=== PATIENT | male | born 1970 | race Caucasian/White ===

== ENCOUNTER 2018-06-08 18:10 | Emergency (ER) | payer BC, MEDICAID ==
[2018-06-08 18:33] VITALS: BP 129/72
--- NOTE | 2018-06-08 18:49 | UC ---
Head Injury HPI - HPI Summary HPI Summary: Stumbled and fell back down about 7 stairs. No LOC. Ongoing headache. No neck pain. - History Of Current Complaint Chief Complaint: UCHeadInjury Stated Complaint: S/P FALL-HEAD COMPLAINT Time Seen by Provider: 06/08/18 18:43 Hx Obtained From: Patient Onset/Duration: Sudden Onset - Fell down stairs < 1 hour ago Severity Currently: Moderate Pain Intensity: 7 Character: Dull, Throbbing Aggravating Factor(s): Other - touch Alleviating Factor(s): Nothing Associated Signs And Symptoms: Negative: LOC (Time In Secs./Mins/Hrs), LOC Duration Unknown, Confusion, Memory Loss, Seizure, Epistaxis, Dental Malocclusion, Neck Pain, Nausea, Vomiting - Allergies/Home Medications Allergies/Adverse Reactions: Allergies Allergy/AdvReac Type Severity Reaction Status Date / Time No Known Allergies Allergy Verified 06/08/18 18:34 PMH/Surg Hx/FS Hx/Imm Hx Endocrine History: Diabetes Cardiovascular History: Hypertension - Surgical History Surgical History: Yes Surgery Procedure, Year, and Place: Esophageal dilatation,colecystectomy,hernia repair,appendectomy,right foot surgery,septoplasty, widening of nostrils, tonsilectomy - Family History Known Family History: Positive: Hypertension, Diabetes - Social History Occupation: Student Lives: With Family Alcohol Use: None Substance Use Type: None Substance Use Comment - Amount & Last Used: vicodin Smoking Status (MU): Never Smoked Tobacco Have You Smoked in the Last Year: No Review of Systems Musculoskeletal: Arthralgia - Shoulder Neurological: Headache Is Patient Immunocompromised?: No All Other Systems Reviewed And Are Negative: Yes Physical Exam Triage Information Reviewed: Yes Appearance: Well-Appearing, Pain Distress - mild, Obese Vital Signs: Initial Vital Signs Temp 99.5 F 06/08/18 18:27 Pulse 88 06/08/18 18:27 Resp 24 06/08/18 18:27 BP 129/72 06/08/18 18:27 Pulse Ox 97 06/08/18 18:27 Vital Signs Reviewed: Yes Eyes: Positive: Conjunctiva Clear ENT: Positive: Pharynx normal, TMs normal - Not visable with obstructing cerumen Neck: Positive: Supple, Nontender, No Lymphadenopathy Respiratory: Positive: Lungs clear Cardiovascular Exam: Normal Musculoskeletal Exam: Normal Neurological Exam: Normal Psychological Exam: Normal Skin Exam: Normal - Additional Comments Tender over a small area occipital scalp without hematoma. Head Injury Course/Dx - Differential Dx/Diagnosis Differential Diagnosis/HQI/PQRI: Cerebral Contusion, Cervical Sprain, Concussion Without LOC, Contusion Provider Diagnoses: Contusion head. Discharge - Sign-Out/Discharge Documenting (check all that apply): Patient Departure - Discharge Plan Condition: Stable Disposition: HOME Patient Education Materials: Scalp Contusion in Adults (ED) Referrals: Major Jon DO [Primary Care Provider] - - Billing Disposition and Condition Condition: STABLE Disposition: Home
--- NOTE | 2018-06-08 19:32 | RAD ---
INDICATION: Fall. Neck injury COMPARISON: CT brain October 24, 2013 TECHNIQUE: Noncontrast axial source images were acquired from the skull base to the vertex. FINDINGS: Ventricles/sulci: The ventricles and cisterns are normal in size and configuration for age. There is a Dandy-Walker variant Brain parenchyma: There is no acute focal parenchymal finding, evidence of intracranial mass, or intracranial mass effect. 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 Extra-axial spaces: There are no abnormal extra axial fluid collections or evidence of extra-axial mass. Calvarium: There is no calvarial fracture or other calvarial abnormality. Scalp: There is no evidence of scalp or extracalvarial soft tissue abnormality. Paranasal sinuses/mastoid: The paranasal sinuses and mastoid air cells are clear. Other: None. IMPRESSION: NO ACUTE INTRACRANIAL FINDINGS.
--- NOTE | 2018-06-08 19:32 | RAD ---
INDICATION: Fall. Neck pain COMPARISON: None TECHNIQUE: Noncontrast axial source images was performed from the skull base to the thoracic inlet. Coronal and and sagittal reformatted images were generated. FINDINGS: Vertebrae: There is no fracture or acute focal bony lesion. There are degenerative changes consisting of minor spurring from C4 through C6 Alignment: The craniocervical junction appears normal. The cervical vertebrae are normally aligned. Central Canal: There are no significant CT abnormalities of the central canal or foramina. MR imaging is a more sensitive method to evaluate the canal and foramina. Intervertebral disc spaces: The disc spaces are maintained. Brain: The visualized brain appears unremarkable. Soft tissues: The visualized soft tissue elements of the neck are unremarkable. The prevertebral soft tissues appear normal. The lung apices are clear. IMPRESSION: NO ACUTE FRACTURE. MILD SPONDYLITIC CHANGE.
== END 2018-06-08 19:47 | disposition home or self-care (01) ==
LOC: UCCORT 18:10
DX: W10.9XXA Fall (on) (from) unspecified stairs and steps, initial encounter (principal); Y93.9 Activity, unspecified; S00.03XA Contusion of scalp, initial encounter; E11.9 Type 2 diabetes mellitus without complications; I10 Essential (primary) hypertension
CPT/HCPCS: 70450; 72125; 99213; G0463

== ENCOUNTER 2018-06-29 12:28 | Inpatient (IN) | payer BC, MEDICAID ==
[2018-06-29] MEDS ORDERED: Tetan/Diph/Pertus SYR(Tdap)* 0.5 ML SYR(BOOSTRIX) use SYR IM ONE (12:58)
[2018-06-29] MEDS ORDERED: Ondansetron INJ* 2 MG/ML VIAL IV ONE (13:20)
[2018-06-29] MEDS ORDERED: Morphine INJ* 2 MG/ML 1 ML SYRINGE (TWO MG - NEW SYRINGE VERSION) IV ONE (13:20)
[2018-06-29 13:55] LABS: ABS Basophils 0 10^3/ul (0-0.2); ABS Eosinophils 0.4 10^3/ul (0-0.6); ABS Lymphocytes 0.3 10^3/ul (1.0-4.8); ABS Monocytes 0.5 10^3/ul (0-0.8); ABS Neutrophils 5.5 10^3/ul (1.5-7.7); ABS Nucleated RBC 0 10^3/ul; Eosinophil % 5.4 % (0-6); Hematocrit 33 % (42-52); Hemoglobin 11.2 g/dl (14.0-18.0); Lymphocyte % 3.8 % (25-47); Mean Corpuscular HGB Conc 34 g/dl (31-36); Mean Corpuscular Hemoglobin 29 pg (27-31); Mean Corpuscular Volume 86 fL (80-94); Mean Platelet Volume 7.4 um3 (7.4-10.4); Nucleated Red Blood Cells % 0; Platelet Count 257 10^3/ul (150-450); Red Blood Count 3.81 10^6/ul (4.00-5.40); Red Cell Distribution Width 14 % (10.5-15); White Blood Count 6.7 10^3/ul (3.5-10.8)
[2018-06-29 14:03] LABS: INR 1.16 (0.77-1.02)
--- NOTE | 2018-06-29 14:03 | RAD ---
HISTORY: Puncture wound with delayed care COMPARISONS: August 30, 2016 VIEWS: 3, Frontal, lateral, and oblique views of the right foot FINDINGS: BONE DENSITY: Normal. BONES: There is no displaced fracture. There are calcaneal enthesophytes. There is no appreciable erosion or periosteal reaction. JOINTS: There is advanced osteoarthritis of the midfoot. ALIGNMENT: There is no dislocation. SOFT TISSUES: There is soft tissue swelling of the forefoot. OTHER FINDINGS: There is no radiopaque foreign body. IMPRESSION: 1. OSTEOARTHRITIS. 2. SOFT TISSUE SWELLING. 3. NO APPRECIABLE EROSION OR PERIOSTEAL REACTION. 4. NO RADIOPAQUE FOREIGN BODY. 5. PLAIN FILM FINDINGS OF OSTEOMYELITIS ARE RELATIVELY LATE FINDINGS. IF THERE IS PERSISTENT CLINICAL CONCERN FOR OSTEOMYELITIS, RECOMMEND CORRELATION WITH FOLLOWUP IMAGING, THREE-PHASE BONE SCANNING, WHITE BLOOD CELL SCAN, AND/OR MRI OF THE AFFECTED REGION.
[2018-06-29 14:13] LABS: EGFR Non-African American 62.5 (>60)
[2018-06-29] MEDS ORDERED: Cefepime 2 GM in Dextrose(*) 2 GM/50 ML BAG IV ONE (16:11)
[2018-06-29] MEDS ORDERED: Vancomycin(*) 2,000 MG in NS 0.9% 250 ML* 250 ML IVPB ONE (16:14)
[2018-06-29] MEDS ORDERED: Vancomycin(*) 2,000 MG in NS 0.9% 500 ML* 500 ML IVPB ONE ×2 (16:42→17:00)
[2018-06-29] MEDS ORDERED: Dextrose 50% Syringe 50 ML* 25 GM/50 ML SYRINGE IV PUSH PRN (16:56)
[2018-06-29] MEDS ORDERED: Vancomycin per Pharmacy* NOTE FOLLOW UP SCH (17:00)
--- NOTE | 2018-06-29 18:22 | HP ---
CC: Dr. Jon; Dr. Rivera; Dr. Mendoza * HISTORY AND PHYSICAL: DATE OF ADMISSION: 06/29/18 TIME OF EVALUATION: 04:15 p.m. PRIMARY CARE PROVIDER: Dr. Jon CONSULTING PHYSICIAN: Dr. Rivera INFECTIOUS DISEASE SPECIALIST: Dr. Mendoza CHIEF COMPLAINT: "My foot is red." HISTORY OF PRESENT ILLNESS: Mr. Hernandez is a 48-year-old male with a past medical history of morbid obesity with a BMI of 47, type 2 diabetes, hypertension, bipolar disorder, who presents to the emergency room with complaints of right foot redness. The patient states that 9 days ago, he stepped on a nail that went through his shoe and nicked his plantar region. He states that it was not really painful and he continued to walk in his shoes for a couple of more hours. When he removed the shoe, there was a little bit of blood on his sock. He washed his foot and soaked it in warm water and peroxide and initially he felt that everything was okay. Four days later, he noticed some redness on the superior aspect of his foot and this progressed and 3 days ago he went to his primary care provider where he received a shot of ceftriaxone and was discharged on Bactrim. The patient states that the redness on his foot continued to spread reaching near his ankle, but today he noticed that some of the erythema was in the plantar area too and that was new, reason why he came to the emergency room for further evaluation. He describes low-grade fevers at home with temperature of 100.6 and some chills. He denies chest pain, palpitations, shortness of breath, nausea, vomiting, diarrhea, or other complaints. He did not notice any drainage from his foot. PAST MEDICAL HISTORY: 1. Morbid obesity with a BMI of 47. 2. Type 2 diabetes. 3. Hypertension. 4. Bipolar disorder. 5. Gout. 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 MEDICATION LIST: 1. Allopurinol 300 mg p.o. t.i.d. 2. Lamotrigine 200 mg p.o. q.a.m. and 400 mg p.o. at bedtime. 3. Lisinopril/hydrochlorothiazide 20/12.5 mg 1 tablet p.o. at bedtime. 4. Lorazepam 1 mg p.o. t.i.d. as needed for anxiety. 5. Metformin 1000 mg p.o. b.i.d. 6. Modafinil 200 mg p.o. daily. 7. Omeprazole 80 mg p.o. at bedtime. 8. Trazodone 300 mg p.o. at bedtime. ALLERGIES: No known drug allergies. FAMILY HISTORY: The patient's grandfather had a history of heart disease. There are other diabetics in the family. SOCIAL HISTORY: No history of tobacco, alcohol, or drug use. Surrogate decision maker is his , Rhea Hernandez, phone number is [phone]. REVIEW OF SYSTEMS: A 14-point review of systems was performed and all the pertinent negative and positive findings are in the HPI. PHYSICAL EXAMINATION GENERAL: The patient is a morbidly obese male, lying in the ED stretcher, in no acute distress. VITAL SIGNS: Temperature 98.3, heart rate is 77, respiratory rate is 14, oxygen saturation 93% on room air, blood pressure is 111/67. CHEST: Breath sounds present bilaterally with no added sounds. CVS: Normal S1, S2. Regular rate and rhythm. ABDOMEN: Obese, soft, nontender, nondistended. Bowel sounds present. EXTREMITIES: No edema. The patient has erythema on the superior aspect of his foot extending from metatarsals all the way to his ankle. He has an old surgical scar from a Bermudez's neuroma between his third and fourth toes. In the plantar area, the puncture site is barely visible, but there is erythema surrounding it. There are good pulses bilaterally and good capillary refill. DIAGNOSTIC STUDIES/LAB DATA: The patient had a CBC that showed WBC of 6.7, hemoglobin of 11.2, hematocrit of 33 with platelets of 257 with 83% neutrophils. ESR is 102. INR is 1.1, APTT is 30. Chemistry showed sodium of 131, potassium of 4.5, chloride 98, bicarb 25, BUN of 17, creatinine of 1.2, glucose of 152, lactic acid of 1.2, calcium of 9.1. LFTs were elevated with a total bilirubin of 3.7, AST of 57, ALT of 67, alk phos of 174. CRP was 253. Foot x-ray showed osteoarthritis, soft tissue swelling. No appreciable erosion or periosteal reaction. No radiopaque foreign body. ASSESSMENT AND PLAN: Mr. Hernandez is a 48-year-old male with a past medical history of morbid obesity, type 2 diabetes, hypertension, bipolar disorder, who presents to the emergency room with right foot erythema after stepping on a nail. 1. Right diabetic foot infection. With the patient's history of stepping on a nail through his shoe, he will need coverage for Pseudomonas on top of gram- positives and anaerobes. He will be admitted to medical floor. He will be treated with vancomycin, cefepime, and metronidazole. An MRI of his foot is already ordered to investigate possibility of osteomyelitis. He will be seen in consultation by orthopedist (Dr. Rivera) and Infectious Disease (Dr. Mendoza) . X- ray did not reveal any foreign body and there is no drainage at this point. His ESR and CRP are certainly elevated and that could suggest acute osteomyelitis. 2. Transaminitis. Suspect it could be secondary to fatty liver, but the patient does have elevation of bilirubin. He is status post cholecystectomy. I am going to check hepatitis serology and liver ultrasound. 3. Acute kidney injury. The patient's last creatinine was more than a year ago and it was normal at 0.8. He is going to receive IV fluids and we are going to monitor his renal function. Of note is the fact that he is on lisinopril and hydrochlorothiazide as an outpatient. I am going to hold the hydrochlorothiazide for now and continue the lisinopril monitoring his renal function. 4. Type 2 diabetes. I am going to check a hemoglobin A1c. I am holding his metformin for now and he will be covered with a lispro sliding scale. 5. Hypertension is controlled. We will continue lisinopril. 6. Bipolar disorder. We will continue lamotrigine, lorazepam, modafinil, and trazodone. 7. DVT prophylaxis: The patient has a score of 2 on the DVT Prophylaxis Risk Assessment Guide and he will be started on subcutaneous heparin. 8. Code status is full. TIME SPENT: Approximately 50 minutes were spent with the patient's interview, medical records review, physical examination to complete the admission, more than half of this time was spent [id number] with the patient and coordination of care. [id number]/[facility] #: [id number] E.J. NOBLE HOSPITALCristino
[2018-06-29] MEDS: Morphine VIAL* 4 MG/ML VIAL (1 ml vial) IV PRN (19:02)
[2018-06-29] MEDS: NS 0.9% 1000 ML* 1,000 ML IV SCH (19:35)
[2018-06-29] MEDS: Acetaminophen TAB* 325 MG PO PRN (19:54)
[2018-06-29] MEDS ORDERED: Lisinopril TAB* 10 MG PO SCH (21:00)
[2018-06-29] MEDS: metroNIDAZOLE IV 500 MG/100ML* 500 MG/100 ML BAG IVPB SCH (22:18)
[2018-06-29] MEDS: Omeprazole CAP* 20 MG PO SCH (22:18)
[2018-06-29] MEDS: Gabapentin CAP(*) 300 MG PO SCH (22:19)
[2018-06-29] MEDS: lamoTRIgine TAB(*) 100 MG PO SCH (22:20)
[2018-06-29] MEDS: PTO:Desvenlafaxine (NF) 50 MG TAB PO SCH (22:21)
[2018-06-29] MEDS: traZODone TAB* 100 MG PO SCH (22:21)
[2018-06-29] MEDS: Heparin VIAL(*) 5000 UNITS/ML VIAL (FIVE THOUSAND) SUBCUT SCH (22:22)
[2018-06-29] MEDS: Insulin LISPRO* 1 UNITS UNIT SUBCUT SCH (22:29)
[2018-06-30] MEDS: Vancomycin(*) 1,000 MG in NS 0.9% 250 ML* 250 ML IVPB SCH ×4 (00:15→19:58)
[2018-06-30] MEDS: Morphine VIAL* 4 MG/ML VIAL (1 ml vial) IV PRN (00:41)
[2018-06-30] MEDS: metroNIDAZOLE IV 500 MG/100ML* 500 MG/100 ML BAG IVPB SCH ×4 (01:44→18:49)
[2018-06-30] MEDS ORDERED: NS 0.9% 1000 ML* 1,000 ML IV ONE (03:45)
[2018-06-30] MEDS: NS 0.9% 1000 ML* 1,000 ML IV SCH (05:14)
[2018-06-30] MEDS: Cefepime(*) 2 GM in NS 0.9% 50 ML* 50 ML IVPB SCH ×2 (05:23→17:23)
[2018-06-30] MEDS: Heparin VIAL(*) 5000 UNITS/ML VIAL (FIVE THOUSAND) SUBCUT SCH ×3 (05:51→22:47)
[2018-06-30 07:18] LABS: ABS Basophils 0 10^3/ul (0-0.2); ABS Eosinophils 0.3 10^3/ul (0-0.6); ABS Lymphocytes 0.2 10^3/ul (1.0-4.8); ABS Monocytes 0.4 10^3/ul (0-0.8); ABS Neutrophils 4.6 10^3/ul (1.5-7.7); ABS Nucleated RBC 0 10^3/ul; Eosinophil % 6.2 % (0-6); Hematocrit 31 % (42-52); Hemoglobin 10.3 g/dl (14.0-18.0); Lymphocyte % 4.2 % (25-47); Mean Corpuscular HGB Conc 34 g/dl (31-36); Mean Corpuscular Hemoglobin 29 pg (27-31); Mean Corpuscular Volume 87 fL (80-94); Mean Platelet Volume 7.6 um3 (7.4-10.4); Nucleated Red Blood Cells % 0; Platelet Count 218 10^3/ul (150-450); Red Blood Count 3.53 10^6/ul (4.00-5.40); Red Cell Distribution Width 14 % (10.5-15); White Blood Count 5.6 10^3/ul (3.5-10.8)
[2018-06-30 07:28] LABS: EGFR Non-African American 77.6 (>60)
[2018-06-30] MEDS: Acetaminophen TAB* 325 MG PO PRN ×2 (07:53→19:24)
[2018-06-30] MEDS: Modafinil TAB* 100 MG PO SCH (07:53)
[2018-06-30] MEDS: lamoTRIgine TAB(*) 100 MG PO SCH ×2 (07:54→22:43)
[2018-06-30] MEDS: Allopurinol TAB* 100 MG PO SCH (07:54)
[2018-06-30] MEDS: Lisinopril TAB* 10 MG PO SCH (07:54)
[2018-06-30] MEDS: Gabapentin CAP(*) 300 MG PO SCH ×3 (07:54→22:42)
[2018-06-30] MEDS: PROCHLORPERAZINE INJ 5 MG/ML 2 ML VIAL IV PRN (07:59)
[2018-06-30] MEDS: Insulin LISPRO* 1 UNITS UNIT SUBCUT SCH ×4 (08:01→22:45)
--- NOTE | 2018-06-30 08:51 | RAD ---
HISTORY: Transaminitis COMPARISONS: None TECHNIQUE: Multiple transverse and longitudinal ultrasound images were obtained of the right upper quadrant of the abdomen using April 10, 2015. FINDINGS: The study is limited by patient body habitus. LIVER: The liver is diffusely echogenic and coarse in echotexture, with decreased acoustic transmission. Liver measures 22 cm in long axis.. There is normal hepatopedal flow of the portal vein on Doppler imaging. BILIARY TREE: There is no intrahepatic or extrahepatic biliary dilatation. The common duct measures 0.6 cm. GALLBLADDER: The patient is status post cholecystectomy. PANCREAS: The pancreas is obscured by overlying bowel gas. RIGHT KIDNEY: The right kidney is normal in shape, size, contour, and echogenicity. There is no hydronephrosis or nephrolithiasis. The right kidney measures 15 x 6.7 x 7.4 cm. AORTA AND IVC: The aorta and IVC are unremarkable. FLUID: There are no pleural effusions. There is no free fluid within the hepatorenal recess. OTHER FINDINGS: None. IMPRESSION: HEPATOMEGALY WITH FATTY INFILTRATION OF THE LIVER
[2018-06-30] MEDS: LORazepam TAB(*) 1 MG PO PRN (09:53)
--- NOTE | 2018-06-30 12:26 | RAD ---
HISTORY: Foot infection, puncture wound COMPARISONS: Plain film dated June 29, 2018 TECHNIQUE: The following sequences were obtained of the right foot: Coronal T1-weighted images and STIR images, sagittal T1-weighted images and STIR images, axial T1-weighted images and STIR images. FINDINGS: Evaluation is limited with patient motion artifact. Evaluation is also limited by lack of intravenous contrast. BONES: There is no appreciable bone edema. JOINTS: There is a joint effusion of the first MTP joint and to lesser extent of the second, third, and fourth MTP joints. SOFT TISSUE/MUSCULATURE: There is a 3.1 x 1.4 x 1.3 cm high T2, low T1 signal lesion between the heads of the third and fourth metatarsals. There is no well-defined wall. This extends into the deep plantar soft tissue, with edema tracking along the plantar flexor tendons. IMPRESSION: 1. LIMITED STUDY. 2. THERE IS A 3.1 CM LESION BETWEEN THE HEADS OF THE THIRD AND FOURTH METATARSALS. THE APPEARANCE IS SUGGESTIVE OF PHLEGMON, THOUGH EARLY ABSCESS IS ALSO WITHIN THE DIFFERENTIAL. THIS EXTENDS TO INVOLVE THE DEEP SPACES OF THE PLANTAR ASPECT OF THE FOOT WITH EDEMA TRACKING ALONG THE PLANTAR FLEXOR TENDON SHEATH. 3. THERE IS NO APPRECIABLE BONE EDEMA TO SUGGEST OSTEOMYELITIS. 4. THERE ARE SMALL JOINT EFFUSIONS OF THE SECOND THROUGH FOURTH MTP JOINTS.
--- NOTE | 2018-06-30 12:48 | CONS ---
ORTHOPEDIC CONSULT NOTE: DATE OF CONSULT: 06/30/18 Thank you for this orthopedic consultation. CHIEF COMPLAINT: Right foot pain. HISTORY OF PRESENT ILLNESS: Mr. Hernandez is a 48-year-old morbidly obese diabetic male with right foot pain and erythema. Ten days ago, he stepped on a nail that went through his shoe and did puncture the plantar aspect of his foot. He washed it with warm water and peroxide. Approximately 1 week ago, he noticed some redness on the top of his foot over the next 3 days, this progressed and he was placed on ceftriaxone and Bactrim by his primary care physician. He presented to the emergency room on 06/29/18, yesterday, with 8/10 pain in the foot, erythema, warmth, and difficulty ambulating. He reports some low-grade fevers at home up to 100.6 and some chills. He denies chest pain, shortness of breath, nausea, vomiting, headache, or dizziness. He denies any drainage from the foot. PAST MEDICAL HISTORY: Morbid obesity, type 2 diabetes, hypertension, bipolar disorder, gout. PAST SURGICAL HISTORY: Cholecystectomy, appendectomy, right foot Bermudez's neuroma excision. HOME MEDICATIONS: 1. Allopurinol 300 mg p.o. t.i.d. 2. Lamotrigine 200 mg p.o. q.a.m., 400 mg p.o. q.p.m. 3. Lisinopril/hydrochlorothiazide 20/12.5 one tablet p.o. q.h.s. 4. Lorazepam 1 mg p.o. t.i.d. 5. Metformin 1000 mg p.o. b.i.d. 6. Modafinil 200 mg p.o. daily. 7. Omeprazole 80 mg p.o. daily. 8. Trazodone 300 mg p.o. daily. ALLERGIES: No known drug allergies. FAMILY HISTORY: Paternal heart disease, diabetes. SOCIAL HISTORY: The patient lives with his . 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 No tobacco, alcohol or recreational drug use. Normally ambulates independently, but has been using a cane because of the foot pain. REVIEW OF SYSTEMS: A 14 systems reviewed with the patient, positive for the right foot pain and swelling, right foot erythema, recent puncture wound to the right foot, fevers, and chills. Otherwise, review of systems was negative or not relevant. PHYSICAL EXAM: General: The patient is a morbidly obese male, in no apparent distress. He seems sedated, alert and oriented x3, when questioned, pleasant mood and appropriate affect. Accompanied by supportive . Vitals: Temperature 99.2, pulse of 82, blood pressure 135/65. Gait is not assessed. HEENT: Atraumatic, normocephalic. Pupils are equal and reactive to light. Chest: Unlabored breathing. Right lower extremity: The patient's skin has a small open abrasion along the lateral aspect of the third toe. He has swelling and tenderness to palpation with erythema along the dorsal forefoot in the interspace between the third and fourth toe. On the plantar aspect, he has the same swelling and erythema in this region of the forefoot. The erythema spreads proximally into the midfoot and the swelling does as well. Erythema and swelling do not extend proximally into the ankle. The patient reports he has sensation to light touch in all nerve distributions. He has 2+ palpable DP pulse. He can dorsiflex and plantar flex. Motion at the toes does cause him pain. RADIOGRAPHS: Plain films of the patient's foot are reviewed, which show no obvious fracture. There are some arthritic changes. No periosteal reaction or erosion. Soft tissue swelling is noted. No foreign body. LABORATORY DATA: Labs today show white blood cell 5.6, hematocrit 31, platelets 218. INR 1.16. Sodium 132, potassium 4.9, chloride 104, BUN and creatinine 14 and 1.02. Bilirubin 3.5, direct bilirubin 2.6, AST 47, ALT 62, alk phos 176. CRP was 253 on 06/29/18. ESR was 102. ASSESSMENT AND PLAN: Mr. Hernandez is a 48-year-old morbidly obese diabetic male, 10 days status post puncture wound with the nail to the plantar aspect of his foot. Over the last 10 days, he has developed swelling, erythema in the interspace between the third and fourth toe, which is traveling approximately from his forefoot to his midfoot. He was admitted yesterday on 06/29/18 with pain and difficulty weightbearing. He has been placed on vancomycin and metronidazole. X- ray shows no obvious osteomyelitis. An MRI has been ordered and will evaluate for soft tissue inflammation, osteomyelitis and fluid collection like an abscess. For now, he will be weightbearing as tolerated on the right lower extremity. I agree with the vancomycin and metronidazole. Infectious Disease has been consulted. Orthopedics will follow along. Thank you for this orthopedic consultation. [id number]/[facility] #: [id number] LISA
[2018-06-30] MEDS: Fluticasone NASAL SPRAY 50MCG* 16 gm SPRAY BTL BOTH NARES SCH (13:59)
[2018-06-30] MEDS ORDERED: Hydrochlorothiazide TAB* 25 MG PO SCH (21:00)
[2018-06-30] MEDS: traZODone TAB* 100 MG PO SCH (22:41)
[2018-06-30] MEDS: PTO:Desvenlafaxine (NF) 50 MG TAB PO SCH (22:44)
[2018-06-30] MEDS: Omeprazole CAP* 20 MG PO SCH (22:44)
[2018-06-30] MEDS: Nystatin TOP POWDER* 15 GM BTL TOPICAL SCH (22:48)
[2018-07-01] MEDS: Vancomycin(*) 1,000 MG in NS 0.9% 250 ML* 250 ML IVPB SCH ×4 (00:17→18:53)
[2018-07-01] MEDS: metroNIDAZOLE IV 500 MG/100ML* 500 MG/100 ML BAG IVPB SCH ×4 (01:52→22:06)
[2018-07-01] MEDS: Cefepime(*) 2 GM in NS 0.9% 50 ML* 50 ML IVPB SCH ×2 (04:05→18:53)
[2018-07-01 05:27] LABS: ABS Basophils 0 10^3/ul (0-0.2); ABS Eosinophils 0.3 10^3/ul (0-0.6); ABS Lymphocytes 0.4 10^3/ul (1.0-4.8); ABS Monocytes 0.3 10^3/ul (0-0.8); ABS Neutrophils 3.1 10^3/ul (1.5-7.7); ABS Nucleated RBC 0 10^3/ul; Hematocrit 32 % (42-52); Hemoglobin 10.6 g/dl (14.0-18.0); Lymphocyte % 10.6 % (25-47); Mean Corpuscular HGB Conc 33 g/dl (31-36); Mean Corpuscular Hemoglobin 29 pg (27-31); Mean Corpuscular Volume 87 fL (80-94); Mean Platelet Volume 7.4 um3 (7.4-10.4); Nucleated Red Blood Cells % 0; Platelet Count 226 10^3/ul (150-450); Red Blood Count 3.65 10^6/ul (4.00-5.40); Red Cell Distribution Width 15 % (10.5-15); White Blood Count 4.2 10^3/ul (3.5-10.8)
[2018-07-01] MEDS ORDERED: Vancomycin Trough Check NOTE FOLLOW UP ONE (05:30)
[2018-07-01 05:45] LABS: EGFR Non-African American 73.5 (>60)
[2018-07-01] MEDS: Heparin VIAL(*) 5000 UNITS/ML VIAL (FIVE THOUSAND) SUBCUT SCH ×2 (06:04→12:08)
[2018-07-01] MEDS: Insulin LISPRO* 1 UNITS UNIT SUBCUT SCH ×4 (07:34→20:30)
--- NOTE | 2018-07-01 08:00 | PN ---
Subjective Date of Service: 06/30/18 Interval History: Pt seen and examined. Meds and labs reviewed. CC: N/A ROS: Denied DAVIDSON/dizziness, F/C, N/V, CP, SOB, increased cough, sputum production , abd pain, diarrhea, constipation, dysuria, myalgias, arthralgias, throat pain , and new skin lesions. The rest of the 14 point ROS are unremarkable. PHYSICAL EXAM: GEN APPEARANCE: Awake, not in acute distress HEENT: NC/AT, PERRLA, moist oral mucosa, (-) throat erythema NECK: Soft, supple, (-) cervical LAD, (-)JVD HEART: S1S2 WNL, RRR, No MRG CHEST: CTA, BL, GAE, No W/R/R ABD: Soft, ND/NT, NABS 4x Q EXT: No C/C/Right foot with signs of cellulitis and development of blister SKIN: Warm to touch PSYCH: No active psychosis, hallucinations, depression, SI/HI Objective Active Medications: Acetaminophen (Tylenol Tab*) 650 mg PO Q6H PRN PRN Reason: pain/fever Last Admin: 06/30/18 19:24 Dose: 650 mg Allopurinol (Zyloprim Tab*) 300 mg PO DAILY [facility] Last Admin: 06/30/18 07:54 Dose: 300 mg Desvenlafaxine Succinate (Pristiq (Nf)) 50 mg PO BEDTIME [facility] Last Admin: 06/30/18 22:44 Dose: 50 mg Dextrose (D50w Syringe 50 Ml*) 12.5 gm IV PUSH .FOR FS < 60 - SS PRN PRN Reason: FS < 60 Fluticasone Propionate (Flonase Nasal [place] 50mcg*) 1 spray BOTH NARES DAILY [facility] Last Admin: 06/30/18 13:59 Dose: 1 spray Gabapentin (Neurontin Cap(*)) 300 mg PO TID [facility] Last Admin: 06/30/18 22:42 Dose: 300 mg Heparin Sodium (Porcine) (Heparin Vial(*)) 5,000 units SUBCUT Q8HR [facility] Last Admin: 07/01/18 06:04 Dose: 5,000 units Cefepime HCl 2 gm/ Sodium (Chloride) 50 mls @ 100 mls/hr IVPB Q12H [facility] Last Admin: 07/01/18 04:05 Dose: 100 mls/hr Metronidazole/Sodium Chloride (Flagyl 500 Mg Ivpb*) 500 mg in 100 mls @ 100 mls /hr IVPB Q8H [facility] Last Admin: 07/01/18 01:52 Dose: 100 mls/hr Vancomycin HCl 1,000 mg/ (Sodium Chloride) 250 mls @ 166.667 mls/hr IVPB Q6H [facility] Last Admin: 07/01/18 06:04 Dose: 166.667 mls/hr Insulin Human Lispro (Humalog*) 0 units SUBCUT ACHS [facility]; Protocol Last Admin: 07/01/18 07:34 Dose: Not Given Lamotrigine (Lamictal Tab(*)) 200 mg PO QAM [facility] Last Admin: 06/30/18 07:54 Dose: 200 mg Lamotrigine (Lamictal Tab(*)) 400 mg PO BEDTIME [facility] Last Admin: 06/30/18 22:43 Dose: 400 mg Lisinopril (Prinivil Tab*) 20 mg PO DAILY [facility] Last Admin: 06/30/18 07:54 Dose: 20 mg Lorazepam (Ativan Tab(*)) 1 mg PO TID PRN PRN Reason: ANXIETY Last Admin: 06/30/18 09:53 Dose: 1 mg Modafinil (Provigil Tab*) 200 mg PO DAILY [facility] Last Admin: 06/30/18 07:53 Dose: 200 mg Morphine Sulfate (Morphine Vial*) 4 mg IV Q4H PRN PRN Reason: SEVERE PAIN Last Admin: 06/30/18 00:41 Dose: 4 mg Nystatin (Nystatin Top Powder*) 1 applic TOPICAL BID [facility] Last Admin: 06/30/18 22:48 Dose: 1 applic Omeprazole (Prilosec Cap*) 80 mg PO BEDTIME [facility] Last Admin: 06/30/18 22:44 Dose: 80 mg Pharmacy Consult (Vancomycin Per Pharmacy*) 1 note FOLLOW UP .VANC PER PHARMACY [facility] Prochlorperazine Edisylate (Compazine Inj*) 5 mg IV Q6H PRN PRN Reason: NAUSEA/VOMITING Last Admin: 06/30/18 07:59 Dose: 5 mg Trazodone HCl (Desyrel Tab*) 300 mg PO BEDTIME [facility] Last Admin: 06/30/18 22:41 Dose: 300 mg Vital Signs - 8 hr 07/01/18 07/01/18 07/01/18 00:17 04:45 07:17 Temperature 97.2 F 98.2 F Pulse Rate 79 77 Respiratory 17 16 19 Rate Blood Pressure 134/54 131/64 (mmHg) O2 Sat by Pulse 97 95 Oximetry Oxygen Devices in Use Now: None, BiPAP Result Diagrams: 07/01/18 05:15 07/01/18 05:15 Microbiology and Other Data: Microbiology 06/29/18 13:38 Aerobic Blood Culture - Preliminary Blood Venous No Growth Day 1 Anaerobic Blood Culture - Preliminary No Growth Day 1 06/29/18 13:43 Aerobic Blood Culture - Preliminary Blood Venous No Growth Day 1 Anaerobic Blood Culture - Preliminary No Growth Day 1 06/29/18 20:00 Nasal Screen MRSA (PCR) - Final Nasal Mrsa Not Detected Assess/Plan/Problems-Billing Assessment: - Patient Problems (1) Diabetic foot Current Visit: Yes Status: Acute Code(s): E11.8 - TYPE 2 DIABETES MELLITUS WITH UNSPECIFIED COMPLICATIONS SNOMED Code(s): 537363392 Comment: -S/P pt stepped on nail -Blood culture (-) x 1 day -Continue Cefepime, Flagyl, and Vanco -Will await further ID input -MRI of right foot reveals 3.1 cm phlegmon, although early abscess is in the differential; no bone edema to suggests osteomyelitis---will defer with Ortho for subsequent plan for possible I&D?? (2) Transaminitis Current Visit: Yes Status: Acute Code(s): R74.0 - NONSPEC ELEV OF LEVELS OF TRANSAMNS & LACTIC ACID DEHYDRGNSE SNOMED Code(s): 660016428 Comment: -Likely due to fatty liver disease given obesity and DM as suggested by Liver U/ S -Viral hepatitis screen pending (3) ANGELINA (acute kidney injury) Current Visit: Yes Status: Acute Code(s): N17.9 - ACUTE KIDNEY FAILURE, UNSPECIFIED SNOMED Code(s): 45093601 Comment: -Resolved (4) Diabetes 1.5, managed as type 2 Current Visit: Yes Status: Acute Code(s): E10.9 - TYPE 1 DIABETES MELLITUS WITHOUT COMPLICATIONS SNOMED Code(s): 605582852 Comment: -Well-controlled -Continue ISS (5) Hypertension Current Visit: Yes Status: Acute Code(s): I10 - ESSENTIAL (PRIMARY) HYPERTENSION SNOMED Code(s): 42062533 Comment: -Well-controlled -Continue Lisinopril (6) DVT prophylaxis Current Visit: Yes Status: Acute Code(s): GPZ1290 - SNOMED Code(s): 796679342 Comment: -Continue Heparin Status and Disposition: -For PT eval
[2018-07-01] MEDS: PROCHLORPERAZINE INJ 5 MG/ML 2 ML VIAL IV PRN ×2 (08:16→18:58)
--- NOTE | 2018-07-01 10:37 | PN ---
Subjective Date of Service: 07/01/18 Interval History: Pt seen and examined. Meds and labs reviewed. CC: Nauseated. Associates CC with Metronidazole with metallic taste sensation ROS: Denied DAVIDSON/dizziness, F/C, Vomiting, CP, SOB, increased cough, sputum production, abd pain, diarrhea, constipation, dysuria, myalgias, arthralgias, throat pain, and new skin lesions. The rest of the 14 point ROS are unremarkable. PHYSICAL EXAM: GEN APPEARANCE: Awake, not in acute distress HEENT: NC/AT, PERRLA, moist oral mucosa, (-) throat erythema NECK: Soft, supple, (-) cervical LAD, (-)JVD HEART: S1S2 WNL, RRR, No MRG CHEST: CTA, BL, GAE, No W/R/R ABD: Soft, ND/NT, NABS 4x Q EXT: No C/C/Right foot with signs of cellulitis and development of blister SKIN: Warm to touch PSYCH: No active psychosis, hallucinations, depression, SI/HI Objective Active Medications: Acetaminophen (Tylenol Tab*) 650 mg PO Q6H PRN PRN Reason: pain/fever Last Admin: 06/30/18 19:24 Dose: 650 mg Allopurinol (Zyloprim Tab*) 300 mg PO DAILY [facility] Last Admin: 06/30/18 07:54 Dose: 300 mg Desvenlafaxine Succinate (Pristiq (Nf)) 50 mg PO BEDTIME [facility] Last Admin: 06/30/18 22:44 Dose: 50 mg Dextrose (D50w Syringe 50 Ml*) 12.5 gm IV PUSH .FOR FS < 60 - SS PRN PRN Reason: FS < 60 Fluticasone Propionate (Flonase Nasal [place] 50mcg*) 1 spray BOTH NARES DAILY [facility] Last Admin: 06/30/18 13:59 Dose: 1 spray Gabapentin (Neurontin Cap(*)) 300 mg PO TID [facility] Last Admin: 06/30/18 22:42 Dose: 300 mg Heparin Sodium (Porcine) (Heparin Vial(*)) 5,000 units SUBCUT Q8HR [facility] Last Admin: 07/01/18 06:04 Dose: 5,000 units Cefepime HCl 2 gm/ Sodium (Chloride) 50 mls @ 100 mls/hr IVPB Q12H [facility] Last Admin: 07/01/18 04:05 Dose: 100 mls/hr Metronidazole/Sodium Chloride (Flagyl 500 Mg Ivpb*) 500 mg in 100 mls @ 100 mls /hr IVPB Q8H [facility] Last Admin: 07/01/18 08:11 Dose: 100 mls/hr Vancomycin HCl 1,000 mg/ (Sodium Chloride) 250 mls @ 166.667 mls/hr IVPB Q6H [facility] Last Admin: 07/01/18 06:04 Dose: 166.667 mls/hr Insulin Human Lispro (Humalog*) 0 units SUBCUT ACHS [facility]; Protocol Last Admin: 07/01/18 07:34 Dose: Not Given Lamotrigine (Lamictal Tab(*)) 200 mg PO QAM [facility] Last Admin: 06/30/18 07:54 Dose: 200 mg Lamotrigine (Lamictal Tab(*)) 400 mg PO BEDTIME [facility] Last Admin: 06/30/18 22:43 Dose: 400 mg Lisinopril (Prinivil Tab*) 20 mg PO DAILY [facility] Last Admin: 06/30/18 07:54 Dose: 20 mg Lorazepam (Ativan Tab(*)) 1 mg PO TID PRN PRN Reason: ANXIETY Last Admin: 06/30/18 09:53 Dose: 1 mg Modafinil (Provigil Tab*) 200 mg PO DAILY [facility] Last Admin: 06/30/18 07:53 Dose: 200 mg Morphine Sulfate (Morphine Vial*) 4 mg IV Q4H PRN PRN Reason: SEVERE PAIN Last Admin: 06/30/18 00:41 Dose: 4 mg Nystatin (Nystatin Top Powder*) 1 applic TOPICAL BID [facility] Last Admin: 06/30/18 22:48 Dose: 1 applic Omeprazole (Prilosec Cap*) 80 mg PO BEDTIME [facility] Last Admin: 06/30/18 22:44 Dose: 80 mg Pharmacy Consult (Vancomycin Per Pharmacy*) 1 note FOLLOW UP .VANC PER PHARMACY [facility] Prochlorperazine Edisylate (Compazine Inj*) 5 mg IV Q6H PRN PRN Reason: NAUSEA/VOMITING Last Admin: 07/01/18 08:16 Dose: 5 mg Trazodone HCl (Desyrel Tab*) 300 mg PO BEDTIME [facility] Last Admin: 06/30/18 22:41 Dose: 300 mg Vital Signs - 8 hr 08/20/18 08/20/18 08/20/18 04:45 07:17 08:00 Temperature 97.2 F 98.2 F Pulse Rate 79 77 Respiratory 16 19 20 Rate Blood Pressure 134/54 131/64 (mmHg) O2 Sat by Pulse 97 95 Oximetry Oxygen Devices in Use Now: None, BiPAP Result Diagrams: 07/01/18 05:15 07/01/18 05:15 Microbiology and Other Data: Microbiology 06/29/18 13:38 Aerobic Blood Culture - Preliminary Blood Venous No Growth Day 1 Anaerobic Blood Culture - Preliminary No Growth Day 1 06/29/18 13:43 Aerobic Blood Culture - Preliminary Blood Venous No Growth Day 1 Anaerobic Blood Culture - Preliminary No Growth Day 1 06/29/18 20:00 Nasal Screen MRSA (PCR) - Final Nasal Mrsa Not Detected Assess/Plan/Problems-Billing Assessment: - Patient Problems (1) Diabetic foot Current Visit: Yes Status: Acute Code(s): E11.8 - TYPE 2 DIABETES MELLITUS WITH UNSPECIFIED COMPLICATIONS SNOMED Code(s): 054030501 Comment: -S/P pt stepped on nail -Blood culture (-) x 1 day -Continue Cefepime, Flagyl, and Vanco -Will await further ID input -MRI of right foot reveals 3.1 cm phlegmon, although early abscess is in the differential; no bone edema to suggests osteomyelitis---touched base with RN who mentioned that orthopedics is planning for an I&D/wash-out later this PM and currently NPO (2) Nausea Current Visit: Yes Status: Acute Code(s): R11.0 - NAUSEA SNOMED Code(s): 649528711 Comment: -Likely due to Flagyl as described above -Provided PRN IV Zofran (3) Transaminitis Current Visit: Yes Status: Acute Code(s): R74.0 - NONSPEC ELEV OF LEVELS OF TRANSAMNS & LACTIC ACID DEHYDRGNSE SNOMED Code(s): 378505298 Comment: -Likely due to fatty liver disease given obesity and DM as suggested by Liver U/ S -Viral hepatitis screen pending (4) ANGELINA (acute kidney injury) Current Visit: Yes Status: Acute Code(s): N17.9 - ACUTE KIDNEY FAILURE, UNSPECIFIED SNOMED Code(s): 58584316 Comment: -Resolved (5) Diabetes 1.5, managed as type 2 Current Visit: Yes Status: Acute Code(s): E10.9 - TYPE 1 DIABETES MELLITUS WITHOUT COMPLICATIONS SNOMED Code(s): 611112681 Comment: -Well-controlled -Continue ISS (6) Hypertension Current Visit: Yes Status: Acute Code(s): I10 - ESSENTIAL (PRIMARY) HYPERTENSION SNOMED Code(s): 33612572 Comment: -Well-controlled -Continue Lisinopril (7) DVT prophylaxis Current Visit: Yes Status: Acute Code(s): DRB4708 - SNOMED Code(s): 523885709 Comment: -Continue Heparin Status and Disposition: -Appreciate PT eval -Continue with RW
[2018-07-01] MEDS: Gabapentin CAP(*) 300 MG PO SCH ×3 (11:30→20:33)
[2018-07-01] MEDS: Fluticasone NASAL SPRAY 50MCG* 16 gm SPRAY BTL BOTH NARES SCH (11:32)
[2018-07-01] MEDS: Nystatin TOP POWDER* 15 GM BTL TOPICAL SCH ×2 (11:33→22:07)
[2018-07-01] MEDS: Modafinil TAB* 100 MG PO SCH (11:33)
[2018-07-01] MEDS ORDERED: Famotidine IV* 10 MG/ML 2 ML (20 mg) IV ONE (14:29)
[2018-07-01] MEDS ORDERED: Ondansetron TAB* 4 MG PO ONE (14:29)
[2018-07-01] MEDS ORDERED: DiMENhydriNATE IV* 50 MG/ML VIAL IV PUSH ONE (14:29)
[2018-07-01] MEDS ORDERED: Buffered Lidocaine 0.9% SYRIN* 5 ML/SYR SYRINGE INTRADERM ONE (14:29)
[2018-07-01] MEDS ORDERED: Midazolam* 1 MG/ML 5 ML VIAL (5 MG) ONE (16:31)
[2018-07-01] MEDS ORDERED: KETAMINE HCL* 50 MG/ML 10 ML VIAL ONE (16:31)
[2018-07-01] MEDS ORDERED: fentaNYL* 50 MCG/ML 2 ML VIAL (100 MCG VIAL) ONE (16:31)
[2018-07-01] MEDS ORDERED: Lidocaine 2% PF* 10 ML AMP ONE (16:47)
[2018-07-01] MEDS ORDERED: Morphine INJ* 2 MG/ML 1 ML SYRINGE (TWO MG - NEW SYRINGE VERSION) IV PRN (16:57)
[2018-07-01] MEDS ORDERED: PROCHLORPERAZINE INJ 5 MG/ML 2 ML VIAL IV PRN (16:57)
[2018-07-01] MEDS ORDERED: oxyCODONE/Acetamin 5/325 MG* TAB PO PRN (16:57)
[2018-07-01] MEDS ORDERED: Naloxone* 0.4 MG/ML 1 ML VIAL IV PRN (16:57)
[2018-07-01] MEDS ORDERED: fentaNYL* 50 MCG/ML 2 ML VIAL (100 MCG VIAL) IV PRN (16:57)
[2018-07-01] MEDS ORDERED: Propofol* 10 MG/ML 20 ML BTL IV PUSH ONE (17:37)
[2018-07-01] MEDS: Morphine VIAL* 4 MG/ML VIAL (1 ml vial) IV PRN (18:43)
[2018-07-01] MEDS: Acetaminophen TAB* 325 MG PO PRN (18:57)
[2018-07-01] MEDS: Omeprazole CAP* 20 MG PO SCH (20:32)
[2018-07-01] MEDS: traZODone TAB* 100 MG PO SCH (20:32)
[2018-07-01] MEDS: lamoTRIgine TAB(*) 100 MG PO SCH ×2 (20:32→22:36)
[2018-07-01] MEDS: Allopurinol TAB* 100 MG PO SCH (20:41)
[2018-07-01] MEDS: Lisinopril TAB* 10 MG PO SCH (20:43)
[2018-07-01] MEDS: PTO:Desvenlafaxine (NF) 50 MG TAB PO SCH (20:57)
[2018-07-02] MEDS: Vancomycin(*) 1,000 MG in NS 0.9% 250 ML* 250 ML IVPB SCH ×5 (00:03→23:41)
[2018-07-02] MEDS: metroNIDAZOLE IV 500 MG/100ML* 500 MG/100 ML BAG IVPB SCH ×3 (04:26→20:29)
[2018-07-02] MEDS: Cefepime(*) 2 GM in NS 0.9% 50 ML* 50 ML IVPB SCH (05:31)
[2018-07-02] MEDS: LORazepam TAB(*) 1 MG PO PRN ×2 (06:36→22:08)
[2018-07-02 06:39] LABS: Hematocrit 30 % (42-52); Hemoglobin 10.4 g/dl (14.0-18.0); Mean Corpuscular HGB Conc 35 g/dl (31-36); Mean Corpuscular Hemoglobin 30 pg (27-31); Mean Corpuscular Volume 85 fL (80-94); Mean Platelet Volume 7.6 um3 (7.4-10.4); Platelet Count 240 10^3/ul (150-450); Red Blood Count 3.52 10^6/ul (4.00-5.40); Red Cell Distribution Width 15 % (10.5-15); White Blood Count 4.8 10^3/ul (3.5-10.8)
[2018-07-02 06:57] LABS: EGFR Non-African American 86.4 (>60)
[2018-07-02] MEDS: Nystatin TOP POWDER* 15 GM BTL TOPICAL SCH ×2 (08:26→22:07)
[2018-07-02] MEDS: Fluticasone NASAL SPRAY 50MCG* 16 gm SPRAY BTL BOTH NARES SCH (08:38)
[2018-07-02] MEDS: Lisinopril TAB* 10 MG PO SCH (08:39)
[2018-07-02] MEDS: Insulin LISPRO* 1 UNITS UNIT SUBCUT SCH ×4 (08:39→20:48)
[2018-07-02] MEDS: Gabapentin CAP(*) 300 MG PO SCH ×3 (08:39→20:49)
[2018-07-02] MEDS: Modafinil TAB* 100 MG PO SCH (08:39)
[2018-07-02] MEDS: Allopurinol TAB* 100 MG PO SCH (08:39)
[2018-07-02] MEDS: lamoTRIgine TAB(*) 100 MG PO SCH ×2 (08:40→20:49)
--- NOTE | 2018-07-02 09:02 | OP ---
DATE OF OPERATION: 07/01/18 - ROOM #408 DATE OF : 68 ATTENDING SURGEON: Williams Bradford MD REFINERY TECHNICIAN: Dianna Estevez PA-C PRE-OP DIAGNOSES: Abscess right foot, previous puncture wound. POST-OP DIAGNOSES: Abscess right foot, previous puncture wound. OPERATIVE PROCEDURE: Debridement, open packing right foot. DESCRIPTION OF PROCEDURE: The patient was taken to the operating room where ankle Esmarch was applied as well as some local anesthetic. We opened up through a 5-cm incision of the dorsal abscess, which was located basically between the third and fourth metatarsal head, dorsal right forefoot. Immediately on incising through the area of tenting skin we encountered pink purulent pus probably 20 to 25 cc noted. This was irrigated thoroughly with pulsatile lavage. We used a curette and rongeur for the soft tissues part of the dorsal skin, which was damaged. We debrided all the way down between the metatarsal head with the pulsatile lavage and the aggressive curetting and rongeur. We then packed the wound open with some Betadine gauze wrapping a compression dressing. Cultures were sent. [id number]/[facility] #: [id number] LISA
--- NOTE | 2018-07-02 13:53 | PN ---
Subjective Date of Service: 07/02/18 Interval History: Pt seen and examined. Meds and labs reviewed. CC: Tolerable right foot pain post I&D ROS: Denied DAVIDSON/dizziness, F/C, N/V, CP, SOB, increased cough, sputum production , abd pain, diarrhea, constipation, dysuria, myalgias, arthralgias, throat pain , and new skin lesions. The rest of the 14 point ROS are unremarkable. PHYSICAL EXAM: GEN APPEARANCE: Awake, not in acute distress HEENT: NC/AT, PERRLA, moist oral mucosa, (-) throat erythema NECK: Soft, supple, (-) cervical LAD, (-)JVD HEART: S1S2 WNL, RRR, No MRG CHEST: CTA, BL, GAE, No W/R/R ABD: Soft, ND/NT, NABS 4x Q EXT: No C/C/Right foot dressing, cdi SKIN: Warm to touch PSYCH: No active psychosis, hallucinations, depression, SI/HI Objective Active Medications: Acetaminophen (Tylenol Tab*) 650 mg PO Q6H PRN PRN Reason: pain/fever Last Admin: 07/01/18 18:57 Dose: 650 mg Allopurinol (Zyloprim Tab*) 300 mg PO DAILY [facility] Last Admin: 07/02/18 08:39 Dose: 300 mg Desvenlafaxine Succinate (Pristiq (Nf)) 50 mg PO BEDTIME [facility] Last Admin: 07/01/18 20:57 Dose: 50 mg Dextrose (D50w Syringe 50 Ml*) 12.5 gm IV PUSH .FOR FS < 60 - SS PRN PRN Reason: FS < 60 Fluticasone Propionate (Flonase Nasal [place] 50mcg*) 1 spray BOTH NARES DAILY [facility] Last Admin: 07/02/18 08:38 Dose: 1 spray Gabapentin (Neurontin Cap(*)) 300 mg PO TID [facility] Last Admin: 07/02/18 08:39 Dose: 300 mg Heparin Sodium (Porcine) (Heparin Vial(*)) 5,000 units SUBCUT Q8H [facility] Vancomycin HCl 1,000 mg/ (Sodium Chloride) 250 mls @ 166.667 mls/hr IVPB Q6H [facility] Last Admin: 07/02/18 12:43 Dose: 166.667 mls/hr Lactated Ringer's (Lactated Ringers 1000 Ml Bag*) 1,000 mls @ 125 mls/hr IV PER RATE [facility] Last Admin: 07/01/18 15:19 Dose: 125 mls/hr Metronidazole/Sodium Chloride (Flagyl 500 Mg Ivpb*) 500 mg in 100 mls @ 100 mls /hr IVPB 0400,1200,2000 [facility] Last Admin: 07/02/18 11:22 Dose: 100 mls/hr Cefepime HCl (Maxipime 2 Gm In Dextrose Duplex (*)) 2 gm in 50 mls @ 100 mls/ hr IV 0500,1700 [facility] Insulin Human Lispro (Humalog*) 0 units SUBCUT ACHS [facility]; Protocol Last Admin: 07/02/18 12:43 Dose: 3 units Lamotrigine (Lamictal Tab(*)) 200 mg PO QAM [facility] Last Admin: 07/02/18 08:40 Dose: 200 mg Lamotrigine (Lamictal Tab(*)) 400 mg PO BEDTIME [facility] Last Admin: 07/01/18 22:36 Dose: 200 mg Lisinopril (Prinivil Tab*) 20 mg PO DAILY [facility] Last Admin: 07/02/18 08:39 Dose: 20 mg Lorazepam (Ativan Tab(*)) 1 mg PO TID PRN PRN Reason: ANXIETY Last Admin: 07/02/18 06:36 Dose: 1 mg Modafinil (Provigil Tab*) 200 mg PO DAILY [facility] Last Admin: 07/02/18 08:39 Dose: 200 mg Morphine Sulfate (Morphine Vial*) 4 mg IV Q4H PRN PRN Reason: SEVERE PAIN Last Admin: 07/01/18 18:43 Dose: 4 mg Nystatin (Nystatin Top Powder*) 1 applic TOPICAL BID [facility] Last Admin: 07/02/18 08:26 Dose: Not Given Omeprazole (Prilosec Cap*) 80 mg PO BEDTIME [facility] Last Admin: 07/01/18 20:32 Dose: 80 mg Oxycodone HCl (Roxycodone Tab*) 5 mg PO Q4H PRN PRN Reason: PAIN - MODERATE Pharmacy Consult (Vancomycin Per Pharmacy*) 1 note FOLLOW UP .VANC PER PHARMACY [facility] Pharmacy Profile Note (Vancomycin Trough Check) 1 note FOLLOW UP 0600 ONE Stop: 07/03/18 06:01 Prochlorperazine Edisylate (Compazine Inj*) 5 mg IV Q6H PRN PRN Reason: NAUSEA/VOMITING Last Admin: 07/01/18 18:58 Dose: 5 mg Trazodone HCl (Desyrel Tab*) 300 mg PO BEDTIME [facility] Last Admin: 07/01/18 20:32 Dose: 300 mg Vital Signs - 8 hr 07/02/18 07/02/18 07/02/18 06:36 07:52 08:00 Temperature 97.9 F Pulse Rate 77 Respiratory 18 18 18 Rate Blood Pressure 132/64 (mmHg) O2 Sat by Pulse 97 97 Oximetry 07/02/18 07/02/18 07/02/18 08:39 09:24 11:15 Temperature Pulse Rate Respiratory 18 16 16 Rate Blood Pressure (mmHg) O2 Sat by Pulse Oximetry Oxygen Devices in Use Now: None Result Diagrams: 07/02/18 06:23 07/02/18 06:23 Microbiology and Other Data: Microbiology 06/29/18 13:38 Aerobic Blood Culture - Preliminary Blood Venous No Growth Day 1 Anaerobic Blood Culture - Preliminary No Growth Day 1 06/29/18 13:43 Aerobic Blood Culture - Preliminary Blood Venous No Growth Day 1 Anaerobic Blood Culture - Preliminary No Growth Day 1 06/29/18 20:00 Nasal Screen MRSA (PCR) - Final Nasal Mrsa Not Detected Assess/Plan/Problems-Billing Assessment: - Patient Problems (1) Diabetic foot Current Visit: Yes Status: Acute Code(s): E11.8 - TYPE 2 DIABETES MELLITUS WITH UNSPECIFIED COMPLICATIONS SNOMED Code(s): 225296745 Comment: -S/P I&D yesterday--for possible re-visit on ??? Will defer with ortho -S/P pt stepped on nail -Blood culture---1 BC (+) Gram positive cocciwill continue to wait for culture incubation and monitor clinical course; pt appears to be improving clinically and could be contamination; will await for speciation; (-) MRSA-+-++ -Continue Cefepime, Flagyl, and Vanco -Will await further ID input -MRI of right foot reveals 3.1 cm phlegmon, although early abscess is in the differential; no bone edema to suggests osteomyelitis---touched base with RN who mentioned that orthopedics is planning for an I&D/wash-out later this PM and currently NPO (2) Nausea Current Visit: Yes Status: Acute Code(s): R11.0 - NAUSEA SNOMED Code(s): 688889822 Comment: -Likely due to Flagyl as described above -Provided PRN IV Zofran (3) Transaminitis Current Visit: Yes Status: Acute Code(s): R74.0 - NONSPEC ELEV OF LEVELS OF TRANSAMNS & LACTIC ACID DEHYDRGNSE SNOMED Code(s): 619832688 Comment: -Likely due to fatty liver disease given obesity and DM as suggested by Liver U/ S -Viral hepatitis screen pending (4) Diabetes 1.5, managed as type 2 Current Visit: Yes Status: Acute Code(s): E10.9 - TYPE 1 DIABETES MELLITUS WITHOUT COMPLICATIONS SNOMED Code(s): 207386206 Comment: -Well-controlled -Continue ISS (5) Hypertension Current Visit: Yes Status: Acute Code(s): I10 - ESSENTIAL (PRIMARY) HYPERTENSION SNOMED Code(s): 23654649 Comment: -Well-controlled -Continue Lisinopril (6) DVT prophylaxis Current Visit: Yes Status: Acute Code(s): EIK9672 - SNOMED Code(s): 566540158 Comment: -Continue Heparin Status and Disposition: -Appreciate PT eval -Continue with RW
[2018-07-02] MEDS ORDERED: Heparin VIAL(*) 5000 UNITS/ML VIAL (FIVE THOUSAND) SUBCUT SCH (14:00)
--- NOTE | 2018-07-02 14:36 | PN ---
Progress Note - Progress Note Date of Service: 07/02/18 SOAP: Subjective: [] Patient seen at bedside. He feels well but is unable to be NWB. He has no pain of his operative site. Denies fever or chills Objective: []General: Well appearing, NAD MSK: Right foot Dressing CDI. Sensation intact and capillary refill less than two seconds distal to dressing. Calves nontender and nonerythematous Assessment: [] Right foot s/p I&D Plan: []Heel WB RLE Agreeable to return to the OR for repeat I&D Vital Signs Temp 97.9 F 07/02/18 07:52 Pulse 77 07/02/18 07:52 Resp 16 07/02/18 11:15 BP 132/64 07/02/18 07:52 Pulse Ox 97 07/02/18 08:00 Intake & Output 07/01/18 07/02/18 07/02/18 18:59 06:59 18:59 Intake Total 750 550 Balance 750 550 Intake: IV Fluids 750 2 GM CEFEPIME 50 LR 700 IVPB 550 ABX - CEFEPIME 100 ABX - FLAGYL 200 ABX - VANCOMYCIN 250 Oral 0 0 Other: # Bowel Movements 1 0 Estimated Stool Amount Medium # Voids 3 1 Laboratory Last Values WBC 4.8 10^3/ul (3.5-10.8) 07/02/18 06:23 RBC 3.52 10^6/ul (4.00-5.40) L 07/02/18 06:23 Hgb 10.4 g/dl (14.0-18.0) L 07/02/18 06:23 Hct 30 % (42-52) L 07/02/18 06:23 MCV 85 fL (80-94) 07/02/18 06:23 MCH 30 pg (27-31) 07/02/18 06:23 MCHC 35 g/dl (31-36) 07/02/18 06:23 RDW 15 % (10.5-15) 07/02/18 06:23 Plt Count 240 10^3/ul (150-450) 07/02/18 06:23 MPV 7.6 um3 (7.4-10.4) 07/02/18 06:23 Neut % (Auto) 73.0 % (38-83) 07/01/18 05:15 Lymph % (Auto) 10.6 % (25-47) L 07/01/18 05:15 [place] % (Auto) 8.0 % (0-7) H 07/01/18 05:15 Eos % (Auto) 8.0 % (0-6) H 07/01/18 05:15 Baso % (Auto) 0.4 % (0-2) 07/01/18 05:15 Absolute Neuts (auto) 3.1 10^3/ul (1.5-7.7) 07/01/18 05:15 Absolute Lymphs (auto) 0.4 10^3/ul (1.0-4.8) L 07/01/18 05:15 Absolute Monos (auto) 0.3 10^3/ul (0-0.8) 07/01/18 05:15 Absolute Eos (auto) 0.3 10^3/ul (0-0.6) 07/01/18 05:15 Absolute Basos (auto) 0 10^3/ul (0-0.2) 07/01/18 05:15 Absolute Nucleated RBC 0 10^3/ul 07/01/18 05:15 Nucleated RBC % 0 07/01/18 05:15 ESR 102 mm/Hr (0-14) H 06/29/18 13:38 INR (Anticoag Therapy) 1.16 (0.77-1.02) H 06/29/18 13:38 APTT 30.3 seconds (26.0-36.3) 06/29/18 13:38 Sodium 134 mmol/L (135-145) L 07/02/18 06:23 Potassium 4.3 mmol/L (3.5-5.0) 07/02/18 06:23 Chloride 107 mmol/L (101-111) 07/02/18 06:23 Carbon Dioxide 20 mmol/L (22-32) L 07/02/18 06:23 Anion Gap 7 mmol/L (2-11) 07/02/18 06:23 BUN 14 mg/dL (6-24) 07/02/18 06:23 Creatinine 0.93 mg/dL (0.67-1.17) 07/02/18 06:23 Est GFR ( Amer) 104.5 (>60) 07/02/18 06:23 Est GFR (Non-Af Amer) 86.4 (>60) 07/02/18 06:23 BUN/Creatinine Ratio 15.1 (8-20) 07/02/18 06:23 Glucose 137 mg/dL (70-100) H 07/02/18 06:23 POC Glucose (mg/dL) 167 mg/dL (70-100) H 07/02/18 11:26 Hemoglobin A1c 6.5 % (4.0-5.6) H 06/30/18 06:57 Lactic Acid 1.2 mmol/L (0.5-2.0) 06/29/18 17:53 Calcium 8.4 mg/dL (8.6-10.3) L 07/02/18 06:23 Phosphorus 2.8 mg/dL (2.5-5.0) 07/01/18 05:15 Magnesium 2.0 mg/dL (1.9-2.7) 07/01/18 05:15 Total Bilirubin 3.60 mg/dL (0.2-1.0) H 07/01/18 05:15 Direct Bilirubin 2.60 mg/dL (0.03-0.18) H 06/30/18 06:57 Indirect Bilirubin 0.9 mg/dL (0.3-1.0) 06/30/18 06:57 AST 43 U/L (13-39) H 07/01/18 05:15 ALT 64 U/L (7-52) H 07/01/18 05:15 Alkaline Phosphatase 217 U/L (34-104) H 07/01/18 05:15 C-Reactive Protein 253.86 mg/L (<8.01) H 06/29/18 13:38 Total Protein 6.2 g/dL (6.4-8.9) L 07/01/18 05:15 Albumin 3.2 g/dL (3.2-5.2) 07/01/18 05:15 Globulin 3.0 g/dL (2-4) 07/01/18 05:15 Albumin/Globulin Ratio 1.1 (1-3) 07/01/18 05:15 Vancomycin Trough 18.9 mcg/mL 07/01/18 05:15
[2018-07-02] MEDS: Heparin VIAL(*) 5000 UNITS/ML VIAL (FIVE THOUSAND) SUBCUT SCH ×2 (15:03→23:41)
[2018-07-02] MEDS: Cefepime 2 GM in Dextrose(*) 2 GM/50 ML BAG IV SCH (16:59)
[2018-07-02] MEDS: Acetaminophen TAB* 325 MG PO PRN (20:28)
[2018-07-02] MEDS: traZODone TAB* 100 MG PO SCH (20:48)
[2018-07-02] MEDS: Omeprazole CAP* 20 MG PO SCH (20:49)
[2018-07-02] MEDS: Carbamide Peroxide 6.5% OTIC* 15 ML BTL BOTH EARS SCH (22:08)
[2018-07-02] MEDS: PTO:Desvenlafaxine (NF) 50 MG TAB PO SCH (22:09)
[2018-07-03] MEDS: metroNIDAZOLE IV 500 MG/100ML* 500 MG/100 ML BAG IVPB SCH (03:59)
[2018-07-03] MEDS: oxyCODONE TAB* 5 MG TAB PO PRN ×2 (05:07→09:40)
[2018-07-03] MEDS: LORazepam TAB(*) 1 MG PO PRN ×2 (05:08→23:27)
[2018-07-03] MEDS: Heparin VIAL(*) 5000 UNITS/ML VIAL (FIVE THOUSAND) SUBCUT SCH ×3 (05:09→22:12)
[2018-07-03] MEDS: Cefepime 2 GM in Dextrose(*) 2 GM/50 ML BAG IV SCH (05:13)
[2018-07-03] MEDS ORDERED: Vancomycin Trough Check NOTE FOLLOW UP ONE (06:00)
[2018-07-03 06:36] LABS: Hematocrit 30 % (42-52); Hemoglobin 10.2 g/dl (14.0-18.0); Mean Corpuscular HGB Conc 34 g/dl (31-36); Mean Corpuscular Hemoglobin 29 pg (27-31); Mean Corpuscular Volume 86 fL (80-94); Mean Platelet Volume 7.3 um3 (7.4-10.4); Platelet Count 271 10^3/ul (150-450); Red Blood Count 3.53 10^6/ul (4.00-5.40); Red Cell Distribution Width 15 % (10.5-15); White Blood Count 4.9 10^3/ul (3.5-10.8)
[2018-07-03 06:55] LABS: EGFR Non-African American 86.4 (>60)
[2018-07-03] MEDS: Vancomycin(*) 1,000 MG in NS 0.9% 250 ML* 250 ML IVPB SCH ×3 (07:21→18:00)
[2018-07-03] MEDS: Insulin LISPRO* 1 UNITS UNIT SUBCUT SCH ×4 (08:12→22:10)
[2018-07-03] MEDS: Gabapentin CAP(*) 300 MG PO SCH ×3 (09:39→21:46)
[2018-07-03] MEDS: Allopurinol TAB* 100 MG PO SCH (09:39)
[2018-07-03] MEDS: Lisinopril TAB* 10 MG PO SCH (09:39)
[2018-07-03] MEDS: Modafinil TAB* 100 MG PO SCH (09:40)
[2018-07-03] MEDS: lamoTRIgine TAB(*) 100 MG PO SCH ×2 (09:40→21:45)
[2018-07-03] MEDS: Carbamide Peroxide 6.5% OTIC* 15 ML BTL BOTH EARS SCH ×2 (09:42→21:46)
[2018-07-03] MEDS: Nystatin TOP POWDER* 15 GM BTL TOPICAL SCH ×2 (09:42→22:12)
[2018-07-03] MEDS: Fluticasone NASAL SPRAY 50MCG* 16 gm SPRAY BTL BOTH NARES SCH (09:42)
--- NOTE | 2018-07-03 10:20 | CONS ---
CONSULTATION REPORT: DATE OF CONSULT: 07/03/18 REQUESTING PHYSICIAN: Dr. Gregory. CONSULTING SERVICE: Infectious Disease. REASON FOR CONSULT: Right foot infection. IMPRESSION: 1. Methicillin-resistant Staphylococcus aureus right foot abscess and infective myositis after a nail puncture about 10 to 12 days ago. He had his tetanus booster here. He had an MRI of the foot on the 06/29/18 that showed no evidence of osteomyelitis. Abscess was between third and fourth metatarsals. He had that debrided by Dr. Bradford on 07/01/18. That was cultured that grew methicillin- resistant Staphylococcus aureus. Dr. Bradford's plan is for another washout this week. 2. Morbid obesity. 3. Diabetes with peripheral neuropathy. 4. Transaminitis and fatty liver on ultrasound. 5. Gout. 6. Bipolar disorder. RECOMMENDATION: We will continue vancomycin goal trough 15 to 20 and stop the cefepime and Flagyl. Though the MRI showed no osteomyelitis, my recommendation is that we continue with IV antibiotics as he has a high risk of recurrence of this infection without appropriate tissue levels. We will plan on 4 weeks of vancomycin with a goal trough of 15 to 20; weekly CBC, CMP, CRP, and vancomycin trough. His current dose is 1 g IV every 6 hours and a trough of 17. HISTORY OF PRESENT ILLNESS: This is a 48-year-old man with obesity, diabetes, admitted with right foot infection after he stepped on a nail about 10 to 12 days ago. He was seen as an outpatient, treated with a dose of ceftriaxone and oral Bactrim, which he had taken and tolerated, but had progression of the infection, so came to the hospital on 06/29/18, had MRI as described above. He had no leukocytosis. He had a C-reactive protein of 250. He was started on vancomycin, cefepime, and Flagyl, taken to the OR on 07/01/18. His swelling has come down, but still having some drainage and will go back to the OR this week. He is tolerating his antibiotics well. No fever, rash, or diarrhea. PAST MEDICAL HISTORY: 1. Diabetes with neuropathy. 2. Morbid obesity. 3. Hypertension. 4. Bipolar disorder. 5. Gout. 6. Status post cholecystectomy. 7. Status post appendectomy. 8. Status post resection of right foot Bermudez's neuroma. MEDICATIONS: 1. Tylenol. 2. Allopurinol. 3. Desvenlafaxine. 4. Fluticasone nasal spray. 5. Gabapentin. 6. Heparin subcutaneous injection. 7. Lamictal. 8. Lisinopril. 9. Ativan as needed. 10. Modafinil. 11. Morphine. 12. Omeprazole. 13. Oxycodone. 14. Trazodone. 15. Vancomycin 1 g every 6 hours. 16. Cefepime 2 g every 12 hours. 17. Flagyl 500 mg every 8 hours. ALLERGIES: No known drug allergies. FAMILY HISTORY: No recurrent infections. SOCIAL HISTORY: He lives in home with his and children. He is doing an online master's degree. He has no travel or sick contacts. No injection drugs. REVIEW OF SYSTEMS: All negative to 14-point review of systems except as noted above in the history of present illness. PHYSICAL EXAM: Vital Signs: Temperature is 37, heart rate is 60, respiratory rate is 16, blood pressure 113/100, oxygen saturation 98% on room air. In general, he is awake, not in distress. Neurologic: He is oriented x3. Follows all commands. HEENT: There is no conjunctival hemorrhage. Oropharynx without lesions. Neck is supple without mass. Heart is regular rate and rhythm without murmurs, rubs, or gallops. Lungs are clear to auscultation bilaterally. Abdomen: Soft, nontender, nondistended. There are bowel sounds present. Skin: There is no rash or splinter hemorrhage. Musculoskeletal: There is no spine tenderness to palpation. Right foot is wrapped. There is no tenderness to palpation to the ankle and lower leg. LABORATORY DATA: Creatinine 0.9. Bilirubin 2.3 down from 3.7 on admission. ALT is 85 up from 67, alkaline phosphatase 304 from 174. White blood cell count 4.9, hemoglobin 10, platelets 271. Blood cultures 1 of 4 bottles grew gram-positive cocci. The PCR is negative for Staph aureus. All three other bottles were negative. Please see impressions and recommendations as outlined above. Thanks for asking me to see Mr. Hernandez in consultation. [id number]/[facility] #: [id number] MTDD
--- NOTE | 2018-07-03 12:45 | PN ---
Subjective Date of Service: 07/03/18 Interval History: Chronic headache, possibly due to caffeine withdrawal. He doesn't drink tea or coffee but drinks caffeinated sodas at home. No foot pain. Objective Active Medications: Acetaminophen (Tylenol Tab*) 650 mg PO Q6H PRN PRN Reason: pain/fever Last Admin: 07/02/18 20:28 Dose: 650 mg Allopurinol (Zyloprim Tab*) 300 mg PO DAILY [facility] Last Admin: 07/03/18 09:39 Dose: 300 mg Carbamide Peroxide (Debrox 6.5% Otic*) 10 drop BOTH EARS BID [facility] Stop: 07/06/18 20:59 Last Admin: 07/03/18 09:42 Dose: 10 drop Desvenlafaxine Succinate (Pristiq (Nf)) 50 mg PO BEDTIME [facility] Last Admin: 07/02/18 22:09 Dose: 50 mg Dextrose (D50w Syringe 50 Ml*) 12.5 gm IV PUSH .FOR FS < 60 - SS PRN PRN Reason: FS < 60 Fluticasone Propionate (Flonase Nasal [place] 50mcg*) 1 spray BOTH NARES DAILY [facility] Last Admin: 07/03/18 09:42 Dose: 1 spray Gabapentin (Neurontin Cap(*)) 300 mg PO TID [facility] Last Admin: 07/03/18 09:39 Dose: 300 mg Heparin Sodium (Porcine) (Heparin Vial(*)) 5,000 units SUBCUT Q8H [facility] Stop: 07/03/18 23:59 Last Admin: 07/03/18 05:09 Dose: 5,000 units Vancomycin HCl 1,000 mg/ (Sodium Chloride) 250 mls @ 166.667 mls/hr IVPB Q6H [facility] Last Admin: 07/03/18 12:20 Dose: 166.667 mls/hr Lactated Ringer's (Lactated Ringers 1000 Ml Bag*) 1,000 mls @ 125 mls/hr IV PER RATE [facility] Last Admin: 07/01/18 15:19 Dose: 125 mls/hr Insulin Human Lispro (Humalog*) 0 units SUBCUT ACHS [facility]; Protocol Last Admin: 07/03/18 12:20 Dose: 3 units Lamotrigine (Lamictal Tab(*)) 200 mg PO QAM [facility] Last Admin: 08/22/18 09:40 Dose: 200 mg Lamotrigine (Lamictal Tab(*)) 400 mg PO BEDTIME [facility] Last Admin: 07/02/18 20:49 Dose: 400 mg Lisinopril (Prinivil Tab*) 20 mg PO DAILY [facility] Last Admin: 07/03/18 09:39 Dose: 20 mg Lorazepam (Ativan Tab(*)) 1 mg PO TID PRN PRN Reason: ANXIETY Last Admin: 07/03/18 05:08 Dose: 1 mg Modafinil (Provigil Tab*) 200 mg PO DAILY [facility] Last Admin: 07/03/18 09:40 Dose: 200 mg Morphine Sulfate (Morphine Vial*) 4 mg IV Q4H PRN PRN Reason: SEVERE PAIN Last Admin: 07/01/18 18:43 Dose: 4 mg Nystatin (Nystatin Top Powder*) 1 applic TOPICAL BID [facility] Last Admin: 07/03/18 09:42 Dose: 1 applic Omeprazole (Prilosec Cap*) 80 mg PO BEDTIME [facility] Last Admin: 07/02/18 20:49 Dose: 80 mg Oxycodone HCl (Roxycodone Tab*) 5 mg PO Q4H PRN PRN Reason: PAIN - MODERATE Last Admin: 07/03/18 09:40 Dose: 5 mg Pharmacy Consult (Vancomycin Per Pharmacy*) 1 note FOLLOW UP .VANC PER PHARMACY [facility] Pharmacy Profile Note (Vancomycin Trough Check) 1 note FOLLOW UP 0600 ONE Stop: 07/05/18 06:01 Prochlorperazine Edisylate (Compazine Inj*) 5 mg IV Q6H PRN PRN Reason: NAUSEA/VOMITING Last Admin: 07/01/18 18:58 Dose: 5 mg Trazodone HCl (Desyrel Tab*) 300 mg PO BEDTIME [facility] Last Admin: 07/02/18 20:48 Dose: 300 mg Vital Signs - 8 hr 07/03/18 07/03/18 07/03/18 05:07 05:08 07:35 Temperature 98.2 F Pulse Rate 67 Respiratory 22 22 16 Rate Blood Pressure 113/97 (mmHg) O2 Sat by Pulse 98 Oximetry 07/03/18 07/03/18 07/03/18 08:11 09:39 09:40 Temperature Pulse Rate Respiratory 16 16 16 Rate Blood Pressure (mmHg) O2 Sat by Pulse Oximetry 07/03/18 07/03/18 07/03/18 10:15 11:12 12:20 Temperature 98.1 F Pulse Rate 74 Respiratory 16 16 16 Rate Blood Pressure 127/76 (mmHg) O2 Sat by Pulse 97 Oximetry Oxygen Devices in Use Now: None Eyes: No Scleral Icterus Extremities: - - R foot bandaged Neurological: Alert and Oriented x 3, NL Sensation Result Diagrams: 07/03/18 06:23 07/03/18 06:23 Microbiology and Other Data: Microbiology 06/29/18 13:38 Aerobic Blood Culture - Preliminary Blood Venous No Growth Day 1 Anaerobic Blood Culture - Preliminary No Growth Day 1 06/29/18 13:43 Aerobic Blood Culture - Preliminary Blood Venous No Growth Day 1 Anaerobic Blood Culture - Preliminary No Growth Day 1 06/29/18 20:00 Nasal Screen MRSA (PCR) - Final Nasal Mrsa Not Detected Assess/Plan/Problems-Billing Assessment: - Patient Problems (1) Diabetic foot Current Visit: Yes Status: Acute Code(s): E11.8 - TYPE 2 DIABETES MELLITUS WITH UNSPECIFIED COMPLICATIONS SNOMED Code(s): 935085159 Comment: Second surgical debridement for 07/04. PICC line ordered. Continue vanco. Could repeat CRP 2-3 days after debridement. Discussed with Dr. Mendoza. (2) Diabetes 1.5, managed as type 2 Current Visit: Yes Status: Acute Code(s): E10.9 - TYPE 1 DIABETES MELLITUS WITHOUT COMPLICATIONS SNOMED Code(s): 882761005 Comment: -Well-controlled. A1C 6.5 on 06/30. -Continue ISS. Insulin needs should decrease as infection is controlled and wound heals. (3) ANGELINA (acute kidney injury) Current Visit: Yes Status: Acute Code(s): N17.9 - ACUTE KIDNEY FAILURE, UNSPECIFIED SNOMED Code(s): 37903559 Comment: -Resolved Status and Disposition: -Appreciate PT eval -Continue with RW
[2018-07-03] MEDS: Acetaminophen TAB* 325 MG PO PRN (16:42)
[2018-07-03] MEDS ORDERED: Buffered Lidocaine 0.9% SYRIN* 5 ML/SYR SYRINGE INTRADERM ONE (16:52)
[2018-07-03] MEDS: Omeprazole CAP* 20 MG PO SCH (21:45)
[2018-07-03] MEDS: traZODone TAB* 100 MG PO SCH (21:45)
[2018-07-03] MEDS: PTO:Desvenlafaxine (NF) 50 MG TAB PO SCH (21:46)
[2018-07-04] MEDS: Vancomycin(*) 1,000 MG in NS 0.9% 250 ML* 250 ML IVPB SCH ×5 (00:03→23:20)
[2018-07-04] MEDS ORDERED: Famotidine IV* 10 MG/ML 2 ML (20 mg) IV ONE (06:00)
[2018-07-04] MEDS: Insulin LISPRO* 1 UNITS UNIT SUBCUT SCH ×3 (08:16→18:21)
--- NOTE | 2018-07-04 08:18 | PN ---
Subjective Date of Service: 07/04/18 Interval History: Mr. Hernandez reports feeling well today though he reports some new numbness to his left foot and ankle that started this morning after sitting up in the chair. He denies pain in his back or leg. He doesn't remember ever having a similar symptom. He wonders if it is numb because of the way he was sitting in a hard chair. He denies other complaint including chest pain, SOB, nausea, or abdominal pain. Objective Active Medications: Acetaminophen (Tylenol Tab*) 650 mg PO Q6H PRN Allopurinol (Zyloprim Tab*) 300 mg PO DAILY [facility] Carbamide Peroxide (Debrox 6.5% Otic*) 10 drop BOTH EARS BID [facility] Desvenlafaxine Succinate (Pristiq (Nf)) 50 mg PO BEDTIME [facility] Dextrose (D50w Syringe 50 Ml*) 12.5 gm IV PUSH .FOR FS < 60 - SS PRN Fluticasone Propionate (Flonase Nasal [place] 50mcg*) 1 spray BOTH NARES DAILY [facility] Gabapentin (Neurontin Cap(*)) 300 mg PO TID [facility] Vancomycin HCl 1,000 mg/ (Sodium Chloride) 250 mls @ 166.667 mls/hr IVPB Q6H [facility] Lactated Ringer's (Lactated Ringers 1000 Ml Bag*) 1,000 mls @ 125 mls/hr IV PER RATE [facility] Insulin Human Lispro (Humalog*) 0 units SUBCUT ACHS [facility]; Protocol Lamotrigine (Lamictal Tab(*)) 200 mg PO QAM [facility] Lamotrigine (Lamictal Tab(*)) 400 mg PO BEDTIME [facility] Lisinopril (Prinivil Tab*) 20 mg PO DAILY [facility] Lorazepam (Ativan Tab(*)) 1 mg PO TID PRN Modafinil (Provigil Tab*) 200 mg PO DAILY [facility] Morphine Sulfate (Morphine Vial*) 4 mg IV Q4H PRN Nystatin (Nystatin Top Powder*) 1 applic TOPICAL BID [facility] Omeprazole (Prilosec Cap*) 80 mg PO BEDTIME [facility] Oxycodone HCl (Roxycodone Tab*) 5 mg PO Q4H PRN Pharmacy Consult (Vancomycin Per Pharmacy*) 1 note FOLLOW UP .VANC PER PHARMACY [facility] Pharmacy Profile Note (Vancomycin Trough Check) 1 note FOLLOW UP 0600 ONE Prochlorperazine Edisylate (Compazine Inj*) 5 mg IV Q6H PRN Trazodone HCl (Desyrel Tab*) 300 mg PO BEDTIME [facility] Vital Signs: Temp Pulse Resp BP Pulse Ox 98.1 F 76 18 156/97 96 07/04/18 07:48 07/04/18 07:48 07/04/18 07:48 07/04/18 07:48 07/04/18 07:48 Oxygen Devices in Use Now: None Appearance: Male sitting up in chair with at bedside in NAD Eyes: No Scleral Icterus Ears/Nose/Mouth/Throat: Mucous Membranes Moist Neck: Trachea Midline Respiratory: Symmetrical Chest Expansion and Respiratory Effort, Clear to Auscultation Cardiovascular: NL Sounds; No Murmurs; No JVD, No Edema Abdominal: NL Sounds; No Tenderness; No Distention Lymphatic: No Cervical Adenopathy Extremities: No Edema Skin: - - R foot with dressing CDI Neurological: Alert and Oriented x 3, NL Muscle Strength and Tone, - - numbness noted to left ankle and foot, no pain, +5 strength Nutrition: Taking PO's Result Diagrams: 07/04/18 08:46 07/04/18 08:46 Assess/Plan/Problems-Billing Assessment: Mr. Hernandez is a 48 yo M with a PMH of Type 2 DM, morbid obesity, hypertension and bipolar disorder who was admitted on 06/29/18 with a diabetic foot ulcer. - Patient Problems (1) Diabetic foot Comment: - Second surgical debridement planned for 07/04. - Appreciate consult from ID. Wound cultures with MRSA. PICC line ordered. Continue vanco x 4 weeks. Could repeat CRP 2-3 days after debridement. (2) Diabetes 1.5, managed as type 2 Comment: - Well-controlled. A1C 6.5 on 06/30. - Continue ISS. Hold metformin. (3) Hypertension Comment: - Well-controlled - Continue Lisinopril (4) Transaminitis Comment: - Resolving, likely due to fatty liver disease given obesity and DM as suggested by Liver U/S - Viral hepatitis screen negative. (5) Bipolar disorder Comment: - Euthymic - Continue pristiq, lamotrigine, trazodone, modafinil, and lorazepam. (6) DVT prophylaxis Comment: -Continue Heparin (7) Full code status Comment: Status and Disposition: -Appreciate PT eval, will need 4 weeks IV abx at discharge.
[2018-07-04 09:03] LABS: ABS Basophils 0.1 10^3/ul (0-0.2); ABS Eosinophils 0.3 10^3/ul (0-0.6); ABS Lymphocytes 1.1 10^3/ul (1.0-4.8); ABS Monocytes 0.4 10^3/ul (0-0.8); ABS Neutrophils 3.8 10^3/ul (1.5-7.7); ABS Nucleated RBC 0 10^3/ul; Eosinophil % 5.6 % (0-6); Hematocrit 32 % (42-52); Hemoglobin 10.8 g/dl (14.0-18.0); Lymphocyte % 19.9 % (25-47); Mean Corpuscular HGB Conc 34 g/dl (31-36); Mean Corpuscular Hemoglobin 29 pg (27-31); Mean Corpuscular Volume 86 fL (80-94); Mean Platelet Volume 7.4 um3 (7.4-10.4); Nucleated Red Blood Cells % 0; Platelet Count 301 10^3/ul (150-450); Red Blood Count 3.71 10^6/ul (4.00-5.40); Red Cell Distribution Width 15 % (10.5-15); White Blood Count 5.7 10^3/ul (3.5-10.8)
[2018-07-04 09:27] LABS: EGFR Non-African American 88.6 (>60)
[2018-07-04] MEDS: Fluticasone NASAL SPRAY 50MCG* 16 gm SPRAY BTL BOTH NARES SCH (09:52)
[2018-07-04] MEDS: Gabapentin CAP(*) 300 MG PO SCH ×3 (09:52→20:09)
[2018-07-04] MEDS: lamoTRIgine TAB(*) 100 MG PO SCH ×2 (09:52→20:09)
[2018-07-04] MEDS: Allopurinol TAB* 100 MG PO SCH (09:52)
[2018-07-04] MEDS: Modafinil TAB* 100 MG PO SCH (09:53)
[2018-07-04] MEDS: Lisinopril TAB* 10 MG PO SCH (09:53)
[2018-07-04] MEDS: Nystatin TOP POWDER* 15 GM BTL TOPICAL SCH ×2 (09:54→20:12)
[2018-07-04] MEDS: Carbamide Peroxide 6.5% OTIC* 15 ML BTL BOTH EARS SCH ×2 (09:55→20:12)
[2018-07-04] MEDS ORDERED: fentaNYL* 50 MCG/ML 2 ML VIAL (100 MCG VIAL) ONE (12:33)
[2018-07-04] MEDS ORDERED: Midazolam* 1 MG/ML 5 ML VIAL (5 MG) ONE (12:34)
[2018-07-04] MEDS ORDERED: Ondansetron INJ* 2 MG/ML VIAL IV PRN (12:40)
[2018-07-04] MEDS ORDERED: HYDROcodone/ACETAMIN 5-325 MG* 1 TAB PO PRN (12:40)
[2018-07-04] MEDS ORDERED: oxyCODONE/Acetamin 5/325 MG* TAB PO PRN (12:40)
[2018-07-04] MEDS ORDERED: Naloxone* 0.4 MG/ML 1 ML VIAL IV PRN (12:40)
[2018-07-04] MEDS ORDERED: Ketorolac INJ* 30 MG/ML 1 ML VIAL IV PRN (12:40)
[2018-07-04] MEDS ORDERED: fentaNYL* 50 MCG/ML 2 ML VIAL (100 MCG VIAL) IV PRN (12:40)
[2018-07-04] MEDS ORDERED: Famotidine IV* 10 MG/ML 2 ML (20 mg) ONE (13:04)
[2018-07-04] MEDS ORDERED: Lidocaine 2% PF * 5 ML VIAL ONE (13:17)
[2018-07-04] MEDS ORDERED: Propofol* 10 MG/ML 20 ML BTL IV PUSH ONE (13:17)
[2018-07-04] MEDS ORDERED: KETAMINE HCL* 50 MG/ML 10 ML VIAL ONE (13:25)
--- NOTE | 2018-07-04 14:08 | OP ---
Operative Report - Blank - Operative Report Date of Operation: 07/04/18 Note: PATIENT: Jon Hernandez DATE OF : 1970 DATE OF SURGERY: 07/04/2018 SURGEON: Juan Francisco Hernandez MD [place] TESTER: SUSHILA Lyon, whos assistance was necessary for positioning, retraction, help with instrumentation, and closure. ANESTHESIOLOGIST: Dr. Phipps PREOPERATIVE DIAGNOSIS: Right foot infection and right foot wound POSTOPERATIVE DIAGNOSIS: Right foot infection and right foot wound OPERATION: 1. Right foot irrigation and debridement 2. Right foot complex secondary wound closure ANESTHESIA: MAC IMPLANTS: none TOURNIQUET TIME: none SPECIMENS: none ESTIMATED BLOOD LOSS: minimal COMPLICATIONS: none STATUS: Stable from the operating room to the recovery room and then back to the hospital floor. INDICATIONS FOR PROCEDURE: Nnamdi had a right foot infection and abscess and underwent a prior irrigation and debridement. I was asked by my colleague, Dr. Bradford, to perform a repeat irrigation and debridement. Both operative and non-operative treatment alternatives were reviewed. Further, the nature and risks of surgery were reviewed in careful detail in the pre-operative holding area. Our discussions regarding the risks of surgery included, but were not limited to, persistent or worsening infection, wound problems, nerve injury, neuroma, RSD, persistent symptoms, blood clot, failure of the surgery, need for further surgery, and even the remote chance of catastrophic complication, including loss of limb. DESCRIPTION OF PROCEDURE: The patient was seen in the preoperative holding unit and informed written consent was obtained. The appropriate extremity was marked. The patient was then brought to the operating room and carefully positioned on the operating room table. Anesthesia was induced. All bony prominences were padded with great care. A chlorhexidine based pre-scrub was performed followed by a Betadine prep and drape in standard sterile fashion. A surgical safety pause was then conducted in which we confirmed the appropriate patient, extremity, planned procedure, availability of equipment, indication and administration of antibiotics, and DVT prophylaxis in the form of a compression boot on the non- surgical extremity. I began by exploring the existing wound between the right third and fourth metatarsals. It measured 8 cm in length, 3 cm in width and 6 cm in depth. There was a fairly big cavity from the previous debridement. However, overall the tissue quality looked quite good. I did debride some nonviable tissue at the skin, subcutaneous, fascial, muscular, periosteal layers. This was done sharply with a 15 blade scalpel. At this point, the remaining tissue appeared healthy and well perfused. We then copiously irrigated the wound with sterile saline. I was able to manually approximate the skin edges, so I decided to close the wound. It was a complex wound closure given the size of the cavity. I closed the deep fascial and muscular layer with 0 PDS suture. This nicely closed the cavity to hopefully prevent any hematoma formation. I then closed the superficial fascial and deep dermal layers with 3-0 Monocryl suture. The skin was then closed with 2-0 Prolene in a vertical mattress fashion. The very distal end of the incision, less than 1 cm, was not able to be closed at the skin layer, so this area was packed with a sterile dressing. A sterile dressing was then applied to the foot. The patient was then awakened from anesthesia and transferred to the recovery room in stable condition. There were no complications. All needle and sponge counts were correct at the end of the case. ATTESTATION: I attest I was present and scrubbed and performed the critical portions of the procedure myself. POSTOPERATIVE PLAN: He will continue on antibiotics as guided by the infectious disease service. He can be heel weightbearing but should focus on rest and elevation to allow the wound to heal.
[2018-07-04] MEDS ORDERED: oxyCODONE/Acetamin 5/325 MG* TAB ONE (14:30)
[2018-07-04] MEDS: Morphine VIAL* 4 MG/ML VIAL (1 ml vial) IV PRN (19:50)
[2018-07-04] MEDS: LORazepam TAB(*) 1 MG PO PRN (20:07)
[2018-07-04] MEDS: traZODone TAB* 100 MG PO SCH (20:08)
[2018-07-04] MEDS: Omeprazole CAP* 20 MG PO SCH (20:10)
[2018-07-04] MEDS: PTO:Desvenlafaxine (NF) 50 MG TAB PO SCH (20:11)
[2018-07-04] MEDS: oxyCODONE TAB* 5 MG TAB PO PRN (22:06)
[2018-07-05] MEDS: Morphine VIAL* 4 MG/ML VIAL (1 ml vial) IV PRN ×3 (00:07→09:39)
[2018-07-05] MEDS: oxyCODONE TAB* 5 MG TAB PO PRN ×3 (02:06→22:26)
[2018-07-05] MEDS ORDERED: Vancomycin Trough Check NOTE FOLLOW UP ONE (06:00)
[2018-07-05] MEDS: LORazepam TAB(*) 1 MG PO PRN ×2 (08:21→22:26)
--- NOTE | 2018-07-05 08:34 | PN ---
Subjective Date of Service: 07/05/18 Interval History: Mr. Hernandez denies complaint today. He has pain in his foot at times but it is reasonably well controlled with the current pain medication regimen. He denies other complaint including chest pain, SOB, nausea, or abdominal pain. Objective Active Medications: Acetaminophen (Tylenol Tab*) 650 mg PO Q6H PRN Allopurinol (Zyloprim Tab*) 300 mg PO DAILY [facility] Carbamide Peroxide (Debrox 6.5% Otic*) 10 drop BOTH EARS BID [facility] Desvenlafaxine Succinate (Pristiq (Nf)) 50 mg PO BEDTIME [facility] Dextrose (D50w Syringe 50 Ml*) 12.5 gm IV PUSH .FOR FS < 60 - SS PRN Fluticasone Propionate (Flonase Nasal [place] 50mcg*) 1 spray BOTH NARES DAILY [facility] Gabapentin (Neurontin Cap(*)) 300 mg PO TID [facility] Vancomycin HCl 1,000 mg/ (Sodium Chloride) 250 mls @ 166.667 mls/hr IVPB Q6H [facility] Insulin Human Lispro (Humalog*) 0 units SUBCUT AC [facility]; Protocol Lactobacillus Rhamnosus (Lactobacillus Acidophilus*) 1 tab PO DAILY [facility] Lamotrigine (Lamictal Tab(*)) 200 mg PO QAM [facility] Lamotrigine (Lamictal Tab(*)) 400 mg PO BEDTIME [facility] Lisinopril (Prinivil Tab*) 20 mg PO DAILY [facility] Lorazepam (Ativan Tab(*)) 1 mg PO TID PRN Modafinil (Provigil Tab*) 200 mg PO DAILY [facility] Morphine Sulfate (Morphine Vial*) 4 mg IV Q4H PRN Nystatin (Nystatin Top Powder*) 1 applic TOPICAL BID [facility] Omeprazole (Prilosec Cap*) 80 mg PO BEDTIME [facility] Oxycodone HCl (Roxycodone Tab*) 5 mg PO Q4H PRN Pharmacy Consult (Vancomycin Per Pharmacy*) 1 note FOLLOW UP .VANC PER PHARMACY [facility] Prochlorperazine Edisylate (Compazine Inj*) 5 mg IV Q6H PRN Trazodone HCl (Desyrel Tab*) 300 mg PO BEDTIME [facility] Vital Signs: Temp Pulse Resp BP Pulse Ox 98.6 F 81 18 151/80 96 07/05/18 04:08 07/05/18 04:08 07/05/18 08:21 07/05/18 04:08 07/05/18 04:08 Oxygen Devices in Use Now: None Appearance: Male sitting up in chair in NAD Eyes: No Scleral Icterus Ears/Nose/Mouth/Throat: Mucous Membranes Moist Neck: Trachea Midline Respiratory: Symmetrical Chest Expansion and Respiratory Effort, Clear to Auscultation Cardiovascular: NL Sounds; No Murmurs; No JVD, No Edema Abdominal: NL Sounds; No Tenderness; No Distention Lymphatic: No Cervical Adenopathy Extremities: No Edema Skin: - - Left foot dressing CDI Neurological: Alert and Oriented x 3, NL Muscle Strength and Tone Nutrition: Taking PO's Result Diagrams: 07/04/18 08:46 07/04/18 08:46 Assess/Plan/Problems-Billing Assessment: Mr. Hernandez is a 48 yo M with a PMH of Type 2 DM, morbid obesity, hypertension and bipolar disorder who was admitted on 06/29/18 with a diabetic foot wound after stepping on a nail, found to be MRSA positive. - Patient Problems (1) Diabetic foot Comment: - Second surgical debridement 07/04. - Appreciate consult from ID. Wound cultures with MRSA. PICC line placed. Continue vanco x 4 weeks. Will need weekly CBC, CMP, CRP, and vanco troughs. (2) Diabetes 1.5, managed as type 2 Comment: - Well-controlled. A1C 6.5 on 06/30. - Continue ISS. Hold metformin. (3) Hypertension Comment: - Well-controlled - Continue Lisinopril (4) Transaminitis Comment: - Resolving, likely due to fatty liver disease given obesity and DM as suggested by Liver U/S - Viral hepatitis screen negative. (5) Bipolar disorder Comment: - Euthymic - Continue pristiq, lamotrigine, trazodone, modafinil, and lorazepam. (6) DVT prophylaxis Comment: -Continue Heparin (7) Full code status Comment: Status and Disposition: - Inpatient. Anticipate discharge to home when medically stable.
[2018-07-05] MEDS: Insulin LISPRO* 1 UNITS UNIT SUBCUT SCH ×3 (09:27→17:34)
[2018-07-05] MEDS: Gabapentin CAP(*) 300 MG PO SCH ×3 (09:38→22:28)
[2018-07-05] MEDS: Lisinopril TAB* 10 MG PO SCH (09:39)
[2018-07-05] MEDS: Lactobacillus Acidophilus* 1 TAB PO SCH (09:39)
[2018-07-05] MEDS: lamoTRIgine TAB(*) 100 MG PO SCH ×2 (09:39→22:29)
[2018-07-05] MEDS: Allopurinol TAB* 100 MG PO SCH (09:39)
[2018-07-05] MEDS: Modafinil TAB* 100 MG PO SCH (09:39)
[2018-07-05] MEDS: Nystatin TOP POWDER* 15 GM BTL TOPICAL SCH ×2 (09:40→22:30)
[2018-07-05] MEDS: Vancomycin(*) 1,000 MG in NS 0.9% 250 ML* 250 ML IVPB SCH ×2 (09:40→17:34)
[2018-07-05] MEDS: Fluticasone NASAL SPRAY 50MCG* 16 gm SPRAY BTL BOTH NARES SCH (09:40)
[2018-07-05] MEDS: Carbamide Peroxide 6.5% OTIC* 15 ML BTL BOTH EARS SCH ×2 (09:41→22:30)
[2018-07-05] MEDS ORDERED: oxyCODONE TAB* 5 MG TAB PO PRN (11:23)
--- NOTE | 2018-07-05 13:22 | PN ---
Progress Note - Progress Note Date of Service: 07/05/18 SOAP: Subjective: [Pt was seen this afternoon sitting in a chair. He states that he is doing well. Pain is minimal and manageable. Denies any chest pain, SOB. ] Objective: [General: NAD, A&O x3 MSK, RLE: Dressing is c/d/i. Pt is able to wiggle toes. calf is non tender and non tense. ] Vital Signs Temp 98.4 F 07/05/18 11:47 Pulse 75 07/05/18 11:47 Resp 16 07/05/18 13:04 BP 144/82 07/05/18 11:47 Pulse Ox 96 07/05/18 11:47 Intake & Output 07/04/18 07/05/18 07/05/18 18:59 06:59 18:59 Intake Total 1365 1693 Output Total 400 Balance 1365 1293 Intake: IV Fluids 600 1053 IVF and ABX 1053 LR 600 IVPB 525 ABX - VANCOMYCIN 525 Oral 240 640 Output: Urine 400 Other: # Bowel Movements 0 Estimated Blood Loss min Comment Assessment: [Right foot I&D ] Plan: [- He will continue on antibiotics as guided by the infectious disease service. - He can be heel weightbearing but should focus on rest and elevation to allow the wound to heal. - Post op shoe to be used - Possible discharge tomorrow ]
--- NOTE | 2018-07-05 14:36 | PN ---
Progress Note - Progress Note Date of Service: 07/05/18 SOAP: Subjective: CC: foot infection HPI: 48 year old diabetic man with puncture right foot and subsequent abscess s/ p I&D. Foot pain improving, no fever, rash or diarrhea. Objective: Vital Signs Temp 36.9 C 07/05/18 11:47 Pulse 75 07/05/18 11:47 Resp 16 07/05/18 13:04 BP 144/82 07/05/18 11:47 Pulse Ox 96 07/05/18 14:08 Intake & Output 07/04/18 07/05/18 07/05/18 18:59 06:59 18:59 Intake Total 1365 1693 1310 Output Total 400 Balance 1365 1293 1310 Intake: IV Fluids 600 1053 IVF and ABX 1053 LR 600 IVPB 525 270 ABX - VANCOMYCIN 525 270 Oral 416 944 1226 Output: Urine 400 Other: Estimated Void Medium # Bowel Movements 0 Estimated Blood Loss min Comment # Voids 1 Gen:awake, no distress HEENT: no thrush Heart:RRR no murmur Lungs:CTA BL Abd:+BS NT ND soft Skin: no rash MSK: R foot wrapped Laboratory Results - last 24 hr 06/30/18 07/04/18 07/05/18 06:57 17:23 07:03 POC Glucose (mg/dL) 131 H Vancomycin Trough 18.8 Hep B Core IgM Ab Nonreactive 07/05/18 07/05/18 09:13 12:46 POC Glucose (mg/dL) 130 H 150 H Vancomycin Trough Hep B Core IgM Ab Microbiology 07/01/18 17:25 Anaerobic Culture - Final Wound - Right 06/29/18 13:38 Aerobic Blood Culture - Final Blood Venous No Growth Day 5 Anaerobic Blood Culture - Final No Growth Day 5 06/29/18 13:43 Aerobic Blood Culture - Final Blood Venous Staphylococcus Capitis Anaerobic Blood Culture - Final No Growth Day 5 Blood MRSA/MSSA (PCR) - Final Mrsa Negative S.aureus Negative Assessment: 1. MRSA foot abscess and infective myositis 2. Diabetes with neuropathy 3. morbid obesity Plan: 1. vancomycin goal tr 15-20 to complete 4 weeks of treatment given high risk of relapse due to comobridities 25 minutes floor time >50% face to face in counseling and coordinating home antibiotics
[2018-07-05] MEDS: Omeprazole CAP* 20 MG PO SCH (22:26)
[2018-07-05] MEDS: traZODone TAB* 100 MG PO SCH (22:28)
[2018-07-05] MEDS: PTO:Desvenlafaxine (NF) 50 MG TAB PO SCH (22:30)
[2018-07-06] MEDS: Vancomycin(*) 1,000 MG in NS 0.9% 250 ML* 250 ML IVPB SCH ×2 (01:59→09:09)
[2018-07-06] MEDS: Insulin LISPRO* 1 UNITS UNIT SUBCUT SCH ×2 (07:46→12:03)
[2018-07-06] MEDS: Fluticasone NASAL SPRAY 50MCG* 16 gm SPRAY BTL BOTH NARES SCH (07:47)
[2018-07-06] MEDS: Carbamide Peroxide 6.5% OTIC* 15 ML BTL BOTH EARS SCH (07:47)
[2018-07-06] MEDS: Allopurinol TAB* 100 MG PO SCH (07:47)
[2018-07-06] MEDS: Lactobacillus Acidophilus* 1 TAB PO SCH (07:48)
[2018-07-06] MEDS: Gabapentin CAP(*) 300 MG PO SCH (07:48)
[2018-07-06] MEDS: lamoTRIgine TAB(*) 100 MG PO SCH (07:49)
[2018-07-06] MEDS: Modafinil TAB* 100 MG PO SCH (07:49)
[2018-07-06] MEDS: Nystatin TOP POWDER* 15 GM BTL TOPICAL SCH (07:49)
[2018-07-06] MEDS: Lisinopril TAB* 10 MG PO SCH (07:49)
--- NOTE | 2018-07-06 08:39 | PN ---
Subjective Date of Service: 07/06/18 Interval History: Mr. Hernandez denies complaint today and is eager for discharge to home if he is able to ambulate with PT on stairs. Objective Active Medications: Acetaminophen (Tylenol Tab*) 650 mg PO Q6H PRN Allopurinol (Zyloprim Tab*) 300 mg PO DAILY [facility] Carbamide Peroxide (Debrox 6.5% Otic*) 10 drop BOTH EARS BID [facility] Desvenlafaxine Succinate (Pristiq (Nf)) 50 mg PO BEDTIME [facility] Dextrose (D50w Syringe 50 Ml*) 12.5 gm IV PUSH .FOR FS < 60 - SS PRN Fluticasone Propionate (Flonase Nasal [place] 50mcg*) 1 spray BOTH NARES DAILY [facility] Gabapentin (Neurontin Cap(*)) 300 mg PO TID [facility] Heparin Sodium (Porcine) (Heparin Flush Picc/Ml/Cvc(*)) 1 - 3 ml FLUSH 0600, 1800 [facility]; Protocol Vancomycin HCl 1,000 mg/ (Sodium Chloride) 250 mls @ 166.667 mls/hr IVPB Q8H [facility] Insulin Human Lispro (Humalog*) 0 units SUBCUT AC [facility]; Protocol Lactobacillus Rhamnosus (Lactobacillus Acidophilus*) 1 tab PO DAILY [facility] Lamotrigine (Lamictal Tab(*)) 200 mg PO QAM [facility] Lamotrigine (Lamictal Tab(*)) 400 mg PO BEDTIME [facility] Lisinopril (Prinivil Tab*) 20 mg PO DAILY [facility] Lorazepam (Ativan Tab(*)) 1 mg PO TID PRN Modafinil (Provigil Tab*) 200 mg PO DAILY [facility] Nystatin (Nystatin Top Powder*) 1 applic TOPICAL BID [facility] Omeprazole (Prilosec Cap*) 80 mg PO BEDTIME [facility] Oxycodone HCl (Roxycodone Tab*) 5 mg PO Q4H PRN Oxycodone HCl (Roxycodone Tab*) 10 mg PO Q4H PRN Pharmacy Consult (Vancomycin Per Pharmacy*) 1 note FOLLOW UP .VANC PER PHARMACY [facility] Pharmacy Profile Note (Vancomycin Trough Check) 1 note FOLLOW UP 0900 ONE Prochlorperazine Edisylate (Compazine Inj*) 5 mg IV Q6H PRN Trazodone HCl (Desyrel Tab*) 300 mg PO BEDTIME [facility] Vital Signs: Temp Pulse Resp BP Pulse Ox 98.0 F 72 16 118/70 100 07/06/18 04:18 07/06/18 04:18 07/06/18 07:48 07/06/18 04:18 07/06/18 04:18 Oxygen Devices in Use Now: None, CPAP Appearance: Male sitting up in chair in NAD with at bedside Eyes: No Scleral Icterus Ears/Nose/Mouth/Throat: Mucous Membranes Moist Neck: Trachea Midline Respiratory: Symmetrical Chest Expansion and Respiratory Effort, Clear to Auscultation Cardiovascular: NL Sounds; No Murmurs; No JVD, No Edema Abdominal: NL Sounds; No Tenderness; No Distention Lymphatic: No Cervical Adenopathy Extremities: No Edema Skin: - - Left foot dressing CDI Neurological: Alert and Oriented x 3, NL Muscle Strength and Tone Result Diagrams: 07/04/18 08:46 07/04/18 08:46 Assess/Plan/Problems-Billing Assessment: Mr. Hernandez is a 48 yo M with a PMH of Type 2 DM, morbid obesity, hypertension and bipolar disorder who was admitted on 06/29/18 with a diabetic foot wound after stepping on a nail, found to be MRSA positive. - Patient Problems (1) Diabetic foot Comment: - Second surgical debridement 07/04, wound now closed. - Appreciate consult from ID. Wound cultures with MRSA. PICC line placed. Continue vanco x 4 weeks. Will need weekly CBC, CMP, CRP, and vanco troughs. (2) Diabetes 1.5, managed as type 2 Comment: - Well-controlled. A1C 6.5 on 06/30. - Continue ISS. Hold metformin. (3) Hypertension Comment: - Well-controlled - Continue Lisinopril (4) Transaminitis Comment: - Resolving, likely due to fatty liver disease given obesity and DM as suggested by Liver U/S - Viral hepatitis screen negative. (5) Bipolar disorder Comment: - Euthymic - Continue pristiq, lamotrigine, trazodone, modafinil, and lorazepam. (6) DVT prophylaxis Comment: -Continue Heparin (7) Full code status Comment: Status and Disposition: - Inpatient. Discharge to home today if able to ambulate on stairs.
[2018-07-06] MEDS: oxyCODONE TAB* 5 MG TAB PO PRN (12:14)
[2018-07-06 12:19] VITALS: BP 148/83
--- NOTE | 2018-07-06 13:02 | PN ---
Progress Note - Progress Note Date of Service: 07/06/18 SOAP: Subjective: [Pt reports he is doing well. Pain managed with po meds. Denies CP, SOB, nausea.] Objective: [A and O x 3 NAD R foot dressing changed - wet to dry distally, xeroform dry dressing on dorsum. Surgical wound with minimal bloody drainage. Skin edges approximated with sutures in place. Small intentional open portion distally. Minimal erythema jj-incisional. Calf soft, NT] Assessment: [s/p R foot I and D Dr. Hernandez] Plan: [D/c home Heel WB with post op shoe F/U with Dr. Bradford next week]
--- NOTE | 2018-07-06 16:08 | DS ---
CC: Dr. Jon * [facility] MEDICINE DISCHARGE SUMMARY: DATE OF ADMISSION: 06/29/18. DATE OF DISCHARGE: 07/06/18 PRIMARY CARE PROVIDER: Dr. Jon ATTENDING PHYSICIAN: Dr. Kenrick Negro * (dictation provided by Zofia Conner NP). PRIMARY DIAGNOSIS: Diabetic foot ulceration with methicillin-resistant Staphylococcus aureus. SECONDARY DIAGNOSES: 1. Morbid obesity with body mass index of 47. 2. Type 2 diabetes. 3. Hypertension. 4. Bipolar disorder. 5. Gout. PAST SURGICAL HISTORY: 1. Status post cholecystectomy. 2. Status post appendectomy. 3. 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 MEDICATIONS AT THE TIME OF DISCHARGE: 1. Desvenlafaxine 50 mg p.o. at bedtime. 2. Lamotrigine 200 mg p.o. q.a.m. and 400 mg p.o. at bedtime. 3. Trazodone 300 mg p.o. at bedtime. 4. Lorazepam 1 mg p.o. t.i.d. p.r.n. 5. Allopurinol 300 mg p.o. daily. 6. Metformin 1000 mg p.o. b.i.d. 7. Omeprazole 80 mg p.o. at bedtime. 8. Lisinopril/hydrochlorothiazide 20/12.5 one tab p.o. at bedtime. 9. Modafinil 200 mg p.o. daily. 10. Gabapentin 300 mg p.o. t.i.d. 11. Oxycodone 5 to 10 mg p.o. q. 4 hours p.r.n. 12. Nystatin powder 1 application topically b.i.d. 13. Lactobacillus 1 tab p.o. daily. HOSPITAL COURSE: Mr. Hernandez is a 48-year-old male with a past medical history of diabetes, who presented to the hospital on 06/29/18, with concern for worsening foot infection. Please see the dictated H and P from Denise Gregory MD, for complete details. In brief, the patient reported that about 9 days prior to admission, he had stepped on a nail, which had gone through his shoe and nicked the plantar aspect of his right foot. The patient had then noticed 4 days later that there was redness on the superior aspect of his foot that progressed. He saw his primary care physician where he received 1 injection of ceftriaxone and then was started on Bactrim therapy. He states that despite this treatment, he had continued redness on his foot, which continued to spread up to his ankle. He also had some low-grade fevers and chills. In the emergency room, the patient had labs that show no leukocytosis. His ESR was 102. His CRP was 253.86. He had a foot x-ray, which showed "osteoarthritis , soft tissue swelling, no appreciable erosion or periosteal reaction, no radiopaque foreign body." He then had a lower extremity MRI, which showed "there is a 3.1 cm lesion between the heads of the third and fourth metatarsal. The appearance is suggestive of phlegmon. The early abscess is also within the differential. This extends to involve the deep spaces of the plantar aspect of the foot with edema tracking along the plantar aspects or tendon sheath. There is no appreciable bone edema to suggest osteomyelitis. There is small joint fusions at the second through fourth MTP joints." The patient was seen in consultation by Dr. Rivera from Orthopedics services and was taken to the OR for open debridement by Dr. Bradford on 07/01/18. He then underwent a second debridement with wound closure with Dr. Castillo. The patient was also seen in consultation by Dr. Mendoza from the Infectious Disease services. Ultimately, the patient's cultures grew MRSA. Dr. Mendoza has recommended a 4- week course of vancomycin. Of other interest during this hospitalization, the patient had evidence of transaminitis. His AST was 57, ALT 67, alkaline phosphatase 174. These numbers were essentially unchanged throughout the hospitalization. He did have a liver ultrasound on 06/30/18, which showed the following, "hepatomegaly with fatty infiltration of the liver." I suspect that transaminitis is related to this, but this can be followed up by his primary care physician. Mr. Hernandez is medically stable for discharge to home. He has had his dressing changed today by the Orthopedics services team. He will be calling on Sunday to Dr. Bradford's office to schedule an appointment within 1 week for repeat dressing change. The patient is to leave the same dressing on until then. He is to be heel- touch weightbearing on the right foot. He has been evaluated by physical therapy and is independent with mobility up and down stairs, which will be required for him to be at home. DISPOSITION: Home. DIET: Low-carb, low-fat. ACTIVITY: Heel-touch weightbearing on the right. FOLLOWUP PLANS: 1. Please follow up with Dr. Bradford. Please call for an appointment on Sunday , within 1 week for reassessment of the right foot. 2. Please follow up with Dr. Jon within a week regarding his hospitalization. 3. The patient will have nursing assistance in the home with administration of IV antibiotics, which has been arranged by her case management team. TIME SPENT: Approximately 60 minutes were spent on the discharge of this patient, more than half time spent with the patient at the bedside reviewing the events leading up to this hospitalization, performing the physical examination, and reviewing of my plan of care. ZOFIA CONNER, FELICITAS [id number]/CPS #: [id number] LISA
[2018-07-08] MEDS ORDERED: Vancomycin Trough Check NOTE FOLLOW UP ONE (09:00)
== END 2018-07-06 13:50 | disposition home health service (06) | DRG 364 ==
LOC: ED 12:28 → MED 16:21
PROVIDERS: ADMIT Internal Medicine; ATTEND Internal Medicine
PROC: 0JBQ0ZZ Excision of Right Foot Subcutaneous Tissue and Fascia, Open Approach (ICD-10-PCS; 2018-07-01)
PROC: 05H533Z Insertion of Infusion Device into Right Subclavian Vein, Percutaneous Approach (ICD-10-PCS; 2018-07-04)
PROC: 0QBN0ZZ Excision of Right Metatarsal, Open Approach (ICD-10-PCS; principal; 2018-07-04 14:45)
DX: E11.621 Type 2 diabetes mellitus with foot ulcer (principal); L97.516 Non-pressure chronic ulcer of other part of right foot with bone involvement without evidence of necrosis; M60.073 Infective myositis, right foot; Z68.42 Body mass index [BMI] 45.0-49.9, adult; L02.611 Cutaneous abscess of right foot; S91.331A Puncture wound without foreign body, right foot, initial encounter; N17.9 Acute kidney failure, unspecified; K76.0 Fatty (change of) liver, not elsewhere classified; E66.01 Morbid (severe) obesity due to excess calories; L08.9 Local infection of the skin and subcutaneous tissue, unspecified; B95.62 Methicillin resistant Staphylococcus aureus infection as the cause of diseases classified elsewhere; I10 Essential (primary) hypertension; F31.9 Bipolar disorder, unspecified; M10.9 Gout, unspecified; R74.0 Nonspecific elevation of levels of transaminase and lactic acid dehydrogenase [LDH]; Y92.9 Unspecified place or not applicable; W45.0XXA Nail entering through skin, initial encounter; Z79.84 Long term (current) use of oral hypoglycemic drugs; Z79.899 Other long term (current) drug therapy; Z82.49 Family history of ischemic heart disease and other diseases of the circulatory system; Z83.3 Family history of diabetes mellitus
CPT/HCPCS: 36415; 76705; 80048; 80053; 80074; 80202; 82247; 82248; 83036; 83605; 83735; 84100; 85025; 85027; 85610; 85652; 85730; 86140; 87040; 87070; 87073; 87077; 87150; 87186; 87205; 87640; 87641; 90715; 99283; A9270-GY; C1751; J0692; J0780; J1240; J1644; J2001; J2250; J2270; J2405; J2704; J3010; J3370; J3490

== ENCOUNTER 2019-09-28 10:45 | Emergency (ER) | payer BC, MEDICAID ==
[2019-09-28 12:43] VITALS: BP 116/61
--- NOTE | 2019-09-28 13:13 | UC ---
Skin Complaint HPI - HPI Summary HPI Summary: 49-year-old male with history of diabetes presents with complaints of the left toenail injury and left heel pain. States for approximately 6 weeks now he has felt like his left heel was bruised whenever he would walk on it and then yesterday noticed he developed a crack in the skin over the heel. No redness, edema, or drainage however he has noted that the pain in his heel has increased. States yesterday he also excellently hit the toenail of his second toe on the left foot yesterday causing the toenail to rip off. States blood immediately afterwards but reading was controlled with some direct pressure. Reports that he is currently treating toenails for a fungal infection. Patient states that he has a history of a complicated foot wound in the past that ultimately required surgery. He tested positive for MRSA at that time. Denies fever, chills, streaking, calf pain or swelling, chest pain, or shortness of breath. - History of Current Complaint Chief Complaint: UCLowerExtremity Time Seen by Provider: 09/28/19 12:36 Stated Complaint: LEFT FOOT SKIN COMPLAINT DIABETIC Hx Obtained From: Patient Pain Intensity: 3 - Allergy/Home Medications Allergies/Adverse Reactions: Allergies Allergy/AdvReac Type Severity Reaction Status Date / Time No Known Allergies Allergy Verified 09/28/19 12:36 Home Medications: Home Medications Nystatin TOP POWDER* 1 applic TOPICAL BID PRN 09/28/19 [History Confirmed ] PMH/Surg Hx/FS Hx/Imm Hx Endocrine History: Diabetes Cardiovascular History: Hypertension Psychological History: Bipolar Disorder, Other - Diabetic neuropathy - Surgical History Surgical History: Yes Surgery Procedure, Year, and Place: Esophageal dilation,colecystectomy,hernia repair,appendectomy,right foot surgery,septoplasty, widening of nostrils, tonsilectomy. 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 - Family History Known Family History: Positive: Hypertension, Diabetes - Social History Occupation: Employed Full-time Lives: With Family Alcohol Use: None Substance Use Type: None Substance Use Comment - Amount & Last Used: vicodin Smoking Status (MU): Never Smoked Tobacco Have You Smoked in the Last Year: No - Immunization History Most Recent Influenza Vaccination: fall Most Recent Pneumonia Vaccination: never Review of Systems All Other Systems Reviewed And Are Negative: Yes Constitutional: Negative: Fever, Chills Skin: Positive: Other - See HPI Respiratory: Positive: Negative Cardiovascular: Positive: Negative Gastrointestinal: Positive: Negative Genitourinary: Positive: Negative Motor: Negative: Weakness Neurovascular: Negative: Decreased Sensation Musculoskeletal: Negative: Arthralgia, Calf Tenderness, Decreased ROM, Edema Neurological: Positive: Negative Is Patient Immunocompromised?: No Physical Exam - Summary Physical Exam Summary: GENERAL APPEARANCE: Alert and cooperative morbidly obese male who appears to be in no acute distress. CARDIAC: Normal S1 and S2. No S3, S4 or murmurs. Rhythm is regular. There is no peripheral edema, cyanosis or pallor. Extremities are warm and well perfused. Capillary refill is less than 2 seconds. Peripheral pulses intact. LUNGS: Clear to auscultation without rales, rhonchi, wheezing or diminished breath sounds. ABDOMEN: Positive bowel sounds. Soft, nondistended, nontender. No guarding or rebound. No masses or hepatosplenomegally. MUSKULOSKELETAL: ROM intact to all extremities. No joint erythema or tenderness. Normal muscular development. EXTREMITIES: Total nail avulsion of the second left toe. 2.5 cm fissure of the plantar heel with out redness, edema, or drainage. SKIN: Overall skin normal color. Triage Information Reviewed: Yes Vital Signs: Initial Vital Signs Temp 98.0 F 09/28/19 12:38 Pulse 72 09/28/19 12:38 Resp 20 09/28/19 12:38 BP 116/61 09/28/19 12:38 Pulse Ox 98 09/28/19 12:38 Vital Signs Reviewed: Yes Images Feet (Multiple View): 1 - Complete nail avulasion 2 - 2.5 cm fissure without erythema, edema, or drainage. Course/Dx - Course Course Of Treatment: 49-year-old male with history of diabetes presents with complaints of the left toenail injury and left heel pain. States for approximately 6 weeks now he has felt like his left heel was bruised whenever he would walk on it and then yesterday noticed he developed a crack in the skin over the heel. No redness, edema, or drainage however he has noted that the pain in his heel has increased. States yesterday he also excellently hit the toenail of his second toe on the left foot yesterday causing the toenail to rip off. States blood immediately afterwards but reading was controlled with some direct pressure. Reports that he is currently treating toenails for a fungal infection. Patient states that he has a history of a complicated foot wound in the past that ultimately required surgery. He tested positive for MRSA at that time. Denies fever, chills, streaking, calf pain or swelling, chest pain, or shortness of breath. Afebrile. Vital signs stable. On exam patient was noted to have a totally avulsion of the toenail of the second toe of his left foot as well as a 2.5 cm fissure to the plantar left heel without erythema, edema, or drainage. Remainder of exam was unremarkable. Discussed with patient that with his past history of complicated foot wound and MRSA with I will start him on Bactrim DS 1 tablet twice daily for 7 days to treat for a potential infection. He is to follow-up with his primary care provider within 2 days for recheck. Anticipatory guidance warning symptoms are reviewed with the patient. Verbalizes understanding and agrees with plan of care. - Differential Diagnoses - Skin Complaint Differential Diagnoses: Cellulitis, Contact Dermatitis, Diabetes, MRSA, Tinea - Diagnoses Provider Diagnosis: Diabetic foot infection Discharge ED - Sign-Out/Discharge Documenting (check all that apply): Patient Departure All imaging exams completed and their final reports reviewed: No Studies - Discharge Plan Condition: Stable Disposition: HOME Prescriptions: Sulfamethox/Trimethoprim DS* [Bactrim DS 800/160 TAB*] 1 tab PO BID #14 tab Patient Education Materials: [facility] Care for People with Diabetes (ED) Referrals: Major Jon DO [Primary Care Provider] - 2 Days (For recheck of wounds.) Additional Instructions: With your past history of complicated foot wounds and MRSA we will start you on an antibiotic to treat for a possible infection. Start Bactrim DS 1 tablet twice daily for 7 days. I would recommend placing some antibiotic ointment over the cracked skin on your heel and keeping this covered with a bandage. Follow-up with your primary care provider within 2 days for recheck of her symptoms. Seek immediate medical attention in the emergency room if you develop fever greater than 100.5 F, redness that rapidly spreads, swelling of the foot, severe pain that is not managed with [id number] pain medication, red streaking up the leg, calf pain or swelling, chest pain, shortness of breath, or any worsening of symptoms. - Billing Disposition and Condition Condition: STABLE Disposition: Home
== END 2019-09-28 13:36 | disposition home or self-care (01) ==
LOC: UCCORT 10:45
DX: S91.205A Unspecified open wound of left lesser toe(s) with damage to nail, initial encounter (principal); L08.89 Other specified local infections of the skin and subcutaneous tissue; E11.69 Type 2 diabetes mellitus with other specified complication; I10 Essential (primary) hypertension; R23.4 Changes in skin texture; Z82.49 Family history of ischemic heart disease and other diseases of the circulatory system; Z83.3 Family history of diabetes mellitus; W22.8XXA Striking against or struck by other objects, initial encounter; Y92.9 Unspecified place or not applicable
CPT/HCPCS: 99212; G0463

== ENCOUNTER 2019-10-22 10:21 | Emergency (ER) | payer BC ==
--- OUTSIDE RECORDS SUMMARY | 2019-10-22 10:27 | XMS REPORT | Continuity of Care Document ---
:1970 External Reference #:[id number] Author Name Major Jon D.O. Address [address] [place] [id number] Care Team Providers Name Role Phone Dexter Farmer MD - Neurology Care Team Information Offset Assistant Press Operator [facility] - Care Team Information Offset Assistant Press Operator [phone] Cardiology - Cardiovascular Disease Member, MD Ba [facility] - Psychiatry Care Team Information Offset Assistant Press Operator [facility] - Care Team Information Offset Assistant Press Operator [phone] Gastroenterology Problems Active Problems Provider Date Benign essential hypertension Luke Rodriguez M.D. 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 Onset: 01/30/2011 Note: dx by Dr Hendricks Sleep apnea Luke Rodriguez M.D. Onset: 01/18/2004 Panic disorder without agoraphobia Luke Rodriguez M.D. Onset: 01/18/2004 Social phobia Luke Rodriguez M.D. Onset: 02/05/2004 Pure hypercholesterolemia Luke Rodriguez M.D. Onset: 02/24/2004 Gastroesophageal reflux disease Luke Rodriguez M.D. Onset: 02/24/2004 Allergic rhinitis due to pollen Luke Rodriguez M.D. Onset: 02/24/2004 Morbid obesity Luke Rodriguez M.D. Onset: 06/08/2004 Gouty arthropathy Luke Rodriguez M.D. Onset: 11/09/2005 Type 2 diabetes mellitus Luke Rodriguez M.D. Onset: 01/08/2009 Difficulty breathing Luke Rodriguez M.D. Onset: 12/08/2010 Gout Justus Marcano M.D. Onset: 06/29/2014 Anemia of chronic disease Luke Rodriguez M.D. Onset: 04/27/2015 Type II diabetes mellitus uncontrolled Hannah Osborne PA Onset: 08/17/2016 Social History Type Date Description Comments Sex Unknown Tobacco Use Start: Unknown Never Smoked Cigarettes ETOH Use Denies alcohol use Recreational Drug Use Denies Drug Use Tobacco Use Start: Unknown Non Smoker / No Tobacco Smoking Status Reviewed: 10/14/19 Non Smoker / No Tobacco Allergies, Adverse Reactions, Alerts Description No Known Drug Allergies Medications Active Medications SIG Qnty Indications Ordering Date Provider Multivitamin Adult 1 by mouth every Unknown 09/29/2019 day Tablets Iron (Ferrous 1 by mouth once Unknown 09/29/2019 Gluconate) daily 256(28Fe) mg Tablets Nystatin-Triamcinolo Apply To Affected 30units B37.49 Major Jon, ne Area On Penis 1-2 D.O. X/Day Until Clear. 383808-2.1Unit/GM-% Then Stop Cream Ciclopirox apply to right foot 13.2ml Major Jon, 04/22/2018 8% nails adjacent skin D.O. Solution and affected nails daily remove weekly with nail alcohol Lotrimin Ultra apply 1 application 12gm Major Jon, 04/22/2018 1% topically to feet D.O. Cream and nails daily Lamotrigine Take 1 Tablet By 90tabs F41.0 Major Jon, 10/22/2015 200mg Mouth Every Morning D.O. Tablets And 2 Tablets By Mouth Every Evening F43.21 F31.81 Gabapentin Take 1 Capsule By 270caps Major Jon, 06/24/2015 300mg Mouth Three Times D.O. Capsules Daily Fexofenadine HCL one tablet by mouth 90tabs T78.40xA Hannah Osborne PA 180mg once daily as Tablets needed for allergies Allopurinol take 1 tablet by 90tabs M10.9 Major Jon, 02/01/2015 300mg mouth every day as D.O. Tablets directed for gout prevention M10.00 Colcrys 2 pills to start then 30tabs M10.00 Luke Rodriguez, 01/22/2015 0.6mg 1 pill 1 hour later; M.D. Tablets starting tomorrow take 1 pill 2x/d; dec to 1/day when symptoms well controlled M10.9 Trazodone HCL Take 2 Tablets By 180tabs G47.00 Major Jon, 09/24/2014 150mg Mouth Every Evening D.O. Tablets AT Bedtime Omeprazole Take 2 Capsules By 60caps K21.9 Major Jon, 06/29/2014 40mg Mouth Every Night D.O. Capsules DR AT Bedtime For Acid Reflux Lisinopril-Hydrochlor Take 1 Tablet By 30tabs I10 Major Jon, 2013 othiazide Mouth Every Day D.O. 20-12.5mg Tablets Metformin HCL Take 1 Tablet By 180tabs E11.622 Major Jon, 01/08/2009 1000mg Mouth Twice Daily D.O. Tablets With A Meal Lorazepam 1 tablet by mouth F31.81 Ba Sanabria, 1mg Tablets three times a day MD TABOR as needed for anxiety/depression Modafinil take 1 tablet by 180tabs F90.9 Justus Marcano, 200mg Tablets mouth twice daily. M.D. code a History Medications Sulfamethoxazole/Trimethoprim DS Take 1 tablet 14tabs Unknown 09/28/2019 - 800-160mg Tablets PO bid x 7 10/05/2019 days Medications Administered in Office Medication SIG Qnty Indications Ordering Provider Date B12 Injection Major Jon D.O. 10/22/2018 Injection SC/Im Injections Major Jon D.O. 10/22/2018 Injection SC/Im Injections Major Jon D.O. 06/27/2018 Injection injection, kenalog, 10 mg Major Jon D.OLogan 12/10/2013 Injection H1N1 Swine Flu Vaccine Luke Rodriguez M.D. 11/02/2009 Injection injection, kenalog, 10 mg Luke Rodriguez M.D. 06/16/2008 Injection Immunizations CPT Code Status Date Vaccine Lot # [id number] Given 09/30/2019 Influenza Virus Vaccine, Quadrivalent, Split, [id number] Preservative Free 94912 Given 07/15/2018 Influenza Virus Vaccine, Quadrivalent, Split, [place] Use 84043 Given 06/29/2018 Adacel or Boostrix, TDaP 73349 Given 07/05/2017 Influenza Virus Vaccine, Quadrivalent, Split, [id number] Preservative Free 40080 Given 08/17/2016 Influenza Virus Vaccine, Quadrivalent, Split, [id number] Preservative Free 56881 Given 11/18/2015 Influenza Virus Vaccine, Quadrivalent, Split, [id number] Preservative Free 87916 Given 09/25/2014 Influenza Virus Vaccine, Quadrivalent, Split, [id number] Preservative Free 55155 Given 10/27/2013 Flu, Split Virus 3Yrs [id number] 63680 Given 08/31/2012 Flu, Split Virus 3Yrs [id number] 85388 Given 07/24/2011 Flu, Split Virus 3Yrs [id number] 69470 Given 01/06/2011 Adacel or Boostrix, TDaP [id number] 38422 Given 08/03/2010 Flu, Split Virus 3Yrs [id number] 38903 Given 04/21/2010 Pneumococcal Immunization [id number] 52534 Given 08/17/2009 Flu, Split Virus 3Yrs [id number] 85395 Given 01/08/2009 Td Immunization [id number] 11858 Given 09/17/2008 Flu, Split Virus 3Yrs 59207 Given 09/09/2007 Flu, Split Virus 3Yrs [id number] 50652 Given 09/09/2005 Flu, Split Virus 3Yrs Vital Signs Date Vital Result Comment 10/14/2019 5:40pm BP Systolic 123 mmHg BP Diastolic 63 mmHg Weight 406.00 lb 09/30/2019 12:09pm BP Systolic 104 mmHg BP Diastolic 60 mmHg Body Temperature 98.1 F Aleve taken at 0800 Weight 409.00 lb w/shoes Results Test Acquired Date Facility Test Result H/L Range Note Laboratory test finding 10/14/2019 In House Hemoglobin A1c 5.8 Laboratory test finding 07/11/2019 In House Hemoglobin A1c 6.0 Procedures Date Code Description Status 09/30/2019 629650054 Diabetic Foot Exam Completed 02/06/2019 [id number] Diabetic Retinal Eye Exam Completed Medical Devices Description No Information Available Encounters Type Date Location Provider Dx Diagnosis Office Visit 10/14/2019 Main Office Major Jon, E11.622 Type 2 diabetes 4:45p D.O. mellitus with other skin ulcer E11.9 Type 2 diabetes mellitus without complications Z79.84 [facility] (current) use of oral hypoglycemic drugs Z12.11 Encounter for screening for malignant neoplasm of colon D64.9 Anemia, unspecified I10 Essential (primary) hypertension E66.2 Morbid (severe) obesity with alveolar hypoventilation F31.81 Bipolar II disorder Office Visit 09/30/2019 11:45a Main Office Hannah Osborne PA E11.622 Type 2 diabetes mellitus with other skin ulcer L84 Corns and callosities A09 Infectious gastroenteritis and colitis, unspecified Z23 Encounter for immunization Z41.8 [facility] 07/11/2019 4:00p Main Office Major Jon, Z68.43 Body mass index D.O. (BMI) 50.0-59.9, adult E11.9 Type 2 diabetes mellitus without complications Z79.84 termite helper (current) use of oral hypoglycemic drugs D64.9 Anemia, unspecified I10 Essential (primary) hypertension E66.2 Morbid (severe) obesity with alveolar hypoventilation Z12.11 Encounter for screening for malignant neoplasm of colon Assessments Date Code Description Provider 10/14/2019 E11.622 Type 2 diabetes mellitus with other skin Major Jon D.O. ulcer 10/14/2019 E11.9 Type 2 diabetes mellitus without Major Jon D.O. complications 10/14/2019 Z79.84 termite helper (current) use of oral hypoglycemic Major Jon D.O. drugs 10/14/2019 Z12.11 Encounter for screening for malignant Major Jon D.O. neoplasm of colon 10/14/2019 D64.9 Anemia, unspecified Major Jon D.O. 10/14/2019 I10 Essential (primary) hypertension Major Jon D.O. 10/14/2019 E66.2 Morbid (severe) obesity with alveolar Sopchak, Major, D.O. hypoventilation 10/14/2019 F31.81 Bipolar II disorder Major Jon D.O. 09/30/2019 E11.622 Type 2 diabetes mellitus with other skin Hannah Osborne PA ulcer 09/30/2019 L84 Corns and callosities Hannah Osborne PA 09/30/2019 A09 Infectious gastroenteritis and colitis, Hannah Osborne PA unspecified 09/30/2019 Z23 Encounter for immunization Hannah Osborne PA 09/30/2019 Z41.8 Encounter for other procedures for purposes Hannah Osborne PA other than remedying health state 07/11/2019 Z68.43 Body mass index (BMI) 50.0-59.9, adult Major Jon D.O. 07/11/2019 E11.9 Type 2 diabetes mellitus without SopMajor guardado D.O. complications 07/11/2019 Z79.84 [facility] (current) use of oral hypoglycemic Major Jon D.O. drugs 07/11/2019 D64.9 Anemia, unspecified Major Jon D.O. 07/11/2019 I10 Essential (primary) hypertension Major Jon D.O. 07/11/2019 E66.2 Morbid (severe) obesity with alveolar Major Jon D.O. hypoventilation 07/11/2019 Z12.11 Encounter for screening for malignant Major Jon D.O. neoplasm of colon Plan of Treatment Future Appointment(s):01/12/2020 4:30 pm - Major Jon D.O. at Main Znxdzc1810/14/2019 - Major Jon D.O.E11.622 Type 2 diabetes mellitus with other skin ggjcnT47.9 Type 2 diabetes mellitus without complicationsFollow up:3 months DM with MN2WA86.84 termite helper (current) use of oral hypoglycemic rlvorV38.11 Encounter for screening for malignant neoplasm of colonReferral:[facility], PzykryuseelpmtgiD12.9 Anemia, sbuibgfyymmP84 Essential ( primary) wqxtvtxwshmkO10.2 Morbid (severe) obesity with alveolar cbmyfqjsaoeuhiyB01.81 Bipolar II disorder Goals 10/14/2019 - Major Jon D.O.E11.622 Type 2 diabetes mellitus with other skin ulcerToday's A1c: 5.8 Hemoglobin A1C (average glucose) < 7.0 - this is checked every 3 months. Avoid/limit carbohydrates: foods like Potatoes, Wheat (bread,pasta,cookies,crackers,pretzels,dough), Rice, [place], and Sugar Limit sweetened beverages. Check eyes yearly with a dialated exam with an handbell choir director Check for diabetic kidney disease yearly with urine microalbumin test Check your feet by looking at all sides daily; once a year at least have them checked by a doctor. Functional Status Description No Information Available Mental Status Description No Information Available Referrals Refer to Reason for Referral Status Appt Date [facility] Screening colonoscopy. Created [address] [place] [address] [phone] [facility] [address] [place] [address] [phone] [facility] screening c-scope Consult and Testing; Closed specialist decides [address] [place] [address] [phone]
--- OUTSIDE RECORDS SUMMARY | 2019-10-22 10:27 | XMS REPORT | Continuity of Care Document ---
:1970 External Reference #:[id number] Author Name Hannah Osborne PA (transmitted by agent of provider Major Jon) Address [address] [facility] [address] [place] [address] Care Team Providers Name Role Phone Dexter Farmer MD - Neurology Care Team Information Curing Press Maintainer [facility] - Care Team Information Curing Press Maintainer [phone] Cardiology - Cardiovascular Disease Member, MD Ba [facility] - Psychiatry Care Team Information Curing Press Maintainer [facility] - Care Team Information Curing Press Maintainer [phone] Gastroenterology Problems Active Problems Provider Date Benign [...] Rodriguez M.D. Onset: 01/08/2009 Difficulty breathing Luke Rodirguez M.D. Onset: 12/08/2010 Gout Justus Marcano M.D. [...] Smoker / No Tobacco Smoking Status Reviewed: 10/01/19 Non Smoker / No Tobacco Allergies, Adverse Reactions, Alerts Description No Known Drug Allergies Medications Active Medications SIG Qnty Indications Ordering Date Provider Multivitamin Adult 1 by mouth every Unknown 09/29/2019 day Tablets Iron (Ferrous 1 by mouth once Unknown 09/29/2019 Gluconate) daily 256(28Fe) mg Tablets Nystatin-Triamcinolo Apply To Affected 30units B37.49 Major Jon, ne Area On Penis 1-2 D.O. X/Day Until Clear. 482990-6.1Unit/GM-% Then Stop Cream Ciclopirox apply to right [...] 1mg Tablets three times a day MD RAMOSC as needed for anxiety/depression Modafinil take 1 [...] D.O. 10/22/2018 Injection SC/Im Injections Major Jon D.OLogan 06/27/2018 Injection injection, kenalog, 10 mg Major oJn D.OLogan 12/10/2013 Injection H1N1 Swine Flu Vaccine Luke Rodriguez M.D. 11/02/2009 Injection injection, kenalog, 10 mg Luke Rodriguez M.D. 06/16/2008 Injection Immunizations CPT Code Status Date Vaccine Lot # [id number] Given 09/30/2019 Influenza Virus Vaccine, Quadrivalent, Split, [id number] Preservative Free 70221 Given 07/15/2018 Influenza Virus Vaccine, Quadrivalent, Split, Im Use 92401 Given 06/29/2018 Adacel or Boostrix, TDaP 14526 Given 07/05/2017 Influenza Virus Vaccine, Quadrivalent, Split, [id number] Preservative Free 42301 Given 08/17/2016 Influenza Virus Vaccine, Quadrivalent, Split, [id number] Preservative Free 34355 Given 11/18/2015 Influenza Virus Vaccine, Quadrivalent, Split, [id number] Preservative Free 27027 Given 09/25/2014 Influenza Virus Vaccine, Quadrivalent, Split, [id number] Preservative Free 79807 Given 10/27/2013 Flu, Split Virus 3Yrs [id number] 48964 Given 08/31/2012 Flu, Split Virus 3Yrs [id number] 54692 Given 07/24/2011 Flu, Split Virus 3Yrs [id number] 93938 Given 01/06/2011 Adacel or Boostrix, TDaP [id number] 57180 Given 08/03/2010 Flu, Split Virus 3Yrs [id number] 24415 Given 04/21/2010 Pneumococcal Immunization [id number] 14543 Given 08/17/2009 Flu, Split Virus 3Yrs [id number] 84176 Given 01/08/2009 Td Immunization [id number] 90452 Given 09/17/2008 Flu, Split Virus 3Yrs 38044 Given 09/09/2007 Flu, Split Virus 3Yrs [id number] 88742 Given 09/09/2005 Flu, Split Virus 3Yrs Vital Signs Date Vital Result Comment 10/14/2019 5:40pm BP Systolic 123 mmHg BP Diastolic 63 mmHg Weight 406.00 lb 09/30/2019 12:09pm BP Systolic 104 mmHg BP Diastolic 60 mmHg Body Temperature 98.1 F Aleve taken at 0800 Weight 409.00 lb w/shoes Results Test Acquired Date Facility Test Result H/L Range Note Laboratory test finding 07/11/2019 In House Hemoglobin A1c 6.0 Procedures Date Code Description Status 02/06/2019 [id number] Diabetic Retinal Eye Exam Completed 10/22/2018 032383949 Diabetic Foot Exam Completed Medical Devices Description No Information Available Encounters Type Date Location Provider Dx Diagnosis Office Visit 09/30/2019 Main Office Hannah Osborne PA E11.622 Type 2 diabetes 11:45a mellitus with other skin ulcer L84 Corns and callosities A09 Infectious gastroenteritis and colitis, unspecified Z23 Encounter for immunization Z41.8 Encntr for oth proc for purpose oth than [facility] Office Visit 07/11/2019 4:00p Main Office Major Jon, Z68.43 Body mass index D.O. (BMI) 50.0-59.9, adult E11.9 Type 2 diabetes mellitus without complications Z79.84 termite inspector (current) use of oral hypoglycemic drugs D64.9 Anemia, unspecified I10 Essential (primary) hypertension E66.2 Morbid (severe) obesity with alveolar hypoventilation Z12.11 Encounter for screening for malignant neoplasm of colon Assessments Date Code Description Provider 09/30/2019 E11.622 Type 2 diabetes mellitus with other skin Hannah Osborne PA ulcer 09/30/2019 L84 Corns and callosities Hannah Osborne PA 09/30/2019 A09 Infectious gastroenteritis and colitis, Hannah Osborne PA unspecified 09/30/2019 Z23 Encounter for immunization Hannah Osborne PA 09/30/2019 Z41.8 Encounter for other procedures for purposes Hannah Osborne PA other than [facility] 07/11/2019 Z68.43 Body mass index (BMI) 50.0-59.9, adult Major Jon D.OLogan 07/11/2019 E11.9 Type 2 diabetes mellitus without Major Jon D.O. complications 07/11/2019 Z79.84 termite inspector (current) use of oral hypoglycemic Major Jon D.O. drugs 07/11/2019 D64.9 Anemia, unspecified Major Jon D.O. 07/11/2019 I10 Essential (primary) hypertension Major Jon D.O. 07/11/2019 E66.2 Morbid (severe) obesity with alveolar Major Jon D.O. hypoventilation 07/11/2019 Z12.11 Encounter for screening for malignant Major Jon D.O. neoplasm of colon Plan of Treatment No Information Available Functional Status Description No Information Available Mental Status Description No Information Available Referrals Refer to Reason for Referral Status Appt Date [facility] [address] [place] [address] [phone] [facility] screening c-scope Consult and Testing; Closed specialist decides [address] [place] [id number] [phone]
[2019-10-22 10:39] VITALS: BP 122/65
--- NOTE | 2019-10-22 10:49 | UC ---
Throat Pain/Nasal Emerson HPI - HPI Summary HPI Summary: sinus pain / pressure x 5 days sinus pain more at the left maxillary cold sx x 2 weeks with runny nose, pnd, cough low grade fever, chills - History of Current Complaint Chief Complaint: UCRespiratory Stated Complaint: SINUS Time Seen by Provider: 10/22/19 10:31 Hx Obtained From: Patient Onset/Duration: Gradual Onset, Lasting Days - 5, Still Present Severity: Moderate Pain Intensity: 4 Cough: Nonproductive Associated Signs & Symptoms: Positive: Sinus Discomfort, Nasal Discharge, Fever. Negative: Vomiting, Rash - Allergies/Home Medications Allergies/Adverse Reactions: Allergies Allergy/AdvReac Type Severity Reaction Status Date / Time No Known Allergies Allergy Verified 10/22/19 10:32 Home Medications: Home Medications Fexofenadine/Pseudoephedrine [Paulina-D 24 Hour Tablet] 1 each PO DAILY PRN 09/30 [History Confirmed 10/22/19] PMH/Surg Hx/FS Hx/Imm Hx Endocrine History: Diabetes Cardiovascular History: Hypertension Psychological History: Anxiety, Depression, Bipolar Disorder - Surgical History Surgical History: Yes Surgery Procedure, Year, and Place: Esophageal dilation,colecystectomy,hernia repair,appendectomy,right foot surgery,septoplasty, widening of nostrils, tonsilectomy. 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 - Family History Known Family History: Positive: Hypertension, Diabetes - Social History Alcohol Use: None Substance Use Type: None Substance Use Comment - Amount & Last Used: vicodin Smoking Status (MU): Never Smoked Tobacco Have You Smoked in the Last Year: No - Immunization History Most Recent Influenza Vaccination: fall Most Recent Pneumonia Vaccination: never Review of Systems All Other Systems Reviewed And Are Negative: Yes ENT: Positive: Nasal Discharge, Sinus Congestion, Sinus Pain/Tenderness Respiratory: Positive: Cough Is Patient Immunocompromised?: No Physical Exam Triage Information Reviewed: Yes Appearance: Well-Appearing, No Pain Distress, Obese Vital Signs: Initial Vital Signs Temp 98.8 F 10/22/19 10:35 Pulse 94 10/22/19 10:35 Resp 18 10/22/19 10:35 BP 122/65 10/22/19 10:35 Pulse Ox 100 10/22/19 10:35 Vital Signs Reviewed: Yes Eye Exam: Normal Eyes: Positive: Conjunctiva Clear ENT: Positive: Normal ENT inspection, Hearing grossly normal, Pharynx normal, Nasal drainage, Sinus tenderness. Negative: TMs normal, TM bulging, TM dull, TM red, Tonsillar swelling, Tonsillar exudate Neck: Positive: Supple, Nontender, No Lymphadenopathy Respiratory: Positive: Chest non-tender, Lungs clear, Normal breath sounds, No respiratory distress Cardiovascular: Positive: RRR, No Murmur, Pulses Normal Throat Pain/Nasal Course/Dx - Differential Dx/Diagnosis Provider Diagnosis: Maxillary sinusitis, acute Discharge ED - Sign-Out/Discharge Documenting (check all that apply): Patient Departure All imaging exams completed and their final reports reviewed: No Studies - Discharge Plan Condition: Stable Disposition: HOME Prescriptions: Amoxicillin/Clavulanate TAB* [Augmentin TAB 875*] 875 mg PO BID #20 tab Mometasone NASAL (NF) [Nasonex (NF)] 1 spray .SEE ORDER DAILY #1 nasal.spr Patient Education Materials: Sinusitis (ED) Referrals: Major Jon DO [Primary Care Provider] - If Needed - Billing Disposition and Condition Condition: STABLE Disposition: Home
== END 2019-10-22 10:51 | disposition home or self-care (01) ==
LOC: UCCORT 10:21
DX: J01.00 Acute maxillary sinusitis, unspecified (principal); I10 Essential (primary) hypertension; E11.9 Type 2 diabetes mellitus without complications; F31.9 Bipolar disorder, unspecified
CPT/HCPCS: 99212; G0463

== ENCOUNTER 2019-10-22 14:44 | Emergency (ER) | payer BC ==
[2019-10-22 15:05] VITALS: BP 128/61
[2019-10-22] MEDS ORDERED: Ibuprofen TAB* 600 MG PO ONE (15:40)
--- NOTE | 2019-10-22 15:45 | UC ---
Lower Extremity/Ankle HPI - HPI Summary HPI Summary: 49-year-old male comes in with a chief complaint of left ankle and foot pain. Patient reports he slipped and fell on some ice in a parking lot today. When he fell is feet and ankles got stuck in a shopping cart. Initially had pain in the left knee left ankle left foot. Pain in the left knee is better now. The worst pain is in the medial aspect of the left ankle and it radiates approximately into the lower leg and also there is pain in foot. Is a 1 cm abrasion on the dorsum of the left foot. Pains worse with use of the ankle and foot and range of motion. - History of Current Complaint Chief Complaint: UCLowerExtremity Stated Complaint: S/P FALL-LEFT ANKLE INJURY Time Seen by Provider: 10/22/19 15:28 Pain Intensity: 5 - Allergies/Home Medications Allergies/Adverse Reactions: Allergies Allergy/AdvReac Type Severity Reaction Status Date / Time No Known Allergies Allergy Verified 10/22/19 15:02 PMH/Surg Hx/FS Hx/Imm Hx Previously Healthy: Yes - gout Endocrine History: Diabetes Cardiovascular History: Hypertension GI/ History: Gastroesophageal Reflux - Surgical History Surgical History: Yes Surgery Procedure, Year, and Place: Esophageal dilation,colecystectomy,hernia repair,appendectomy,right foot surgery,septoplasty, widening of nostrils, tonsilectomy. 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 - Family History Known Family History: Positive: Hypertension, Diabetes - Social History Alcohol Use: None Substance Use Type: None Substance Use Comment - Amount & Last Used: vicodin Smoking Status (MU): Never Smoked Tobacco Have You Smoked in the Last Year: No - Immunization History Most Recent Influenza Vaccination: fall Most Recent Pneumonia Vaccination: never Review of Systems All Other Systems Reviewed And Are Negative: Yes Constitutional: Positive: Negative Skin: Positive: Other - see hpi Eyes: Positive: Negative ENT: Positive: Negative Respiratory: Positive: Negative Cardiovascular: Positive: Negative Gastrointestinal: Positive: Negative Motor: Positive: Other - see hpi Neurovascular: Positive: Other - see hpi Musculoskeletal: Positive: Other: - see hpi Neurological: Positive: Negative Psychological: Positive: Negative Is Patient Immunocompromised?: No Physical Exam Triage Information Reviewed: Yes Appearance: Well-Appearing, Well-Nourished, Pain Distress - mild with rom/exam of left foot/ankle Vital Signs: Initial Vital Signs Temp 98.5 F 10/22/19 15:02 Pulse 90 10/22/19 15:02 Resp 18 10/22/19 15:02 BP 128/61 10/22/19 15:02 Pulse Ox 98 10/22/19 15:02 Vital Signs Reviewed: Yes Eye Exam: Normal Eyes: Positive: Conjunctiva Clear Neck: Positive: Supple Respiratory: Positive: No respiratory distress Musculoskeletal: Positive: Other: - Left ankle is mostly tender on the medial aspect into the medial aspect of the foot and the dorsum of the left foot. Patient has normal range of motion although he does have complaint of pain with range of motion. Achilles tendon is nontender and intact. The left knee is nontender to palpation. Neurological: Positive: Alert Psychological: Positive: Age Appropriate Behavior Skin: Positive: Other - 1 cm abrasion on the dorsum of the left foot. Normal capillary refill. Positive dorsalis pedis pulse. Lower Extremity Course/Dx - Course Course Of Treatment: Braille Translator: Hakan Lopez Daniel, ([id number]) Fish Hatchery Manager: SARA ( SARA) Report Date: 10/22/2019 15:43:00 Report Status: Final ====== Start of Report Content Patient Name: OSCAR MONAHAN Ordering Physician: Luke Parr MD Acct.#: [id number] : 1970 Age: 49 Sex: M [facility]: [facility] Exam Date: 10/22/19 150 ADM Status: REG ER Order Information: FOOT LEFT 3+ VWS Accession Number: [id number] CPT: 29459 HISTORY: pain s/p fall . COMPARISONS: August 16, 2013 VIEWS: 6, Frontal, lateral, and oblique views of the left foot and ankle. FINDINGS: BONE DENSITY: Normal. BONES: There is no displaced fracture. There are posterior and plantar calcaneal enthesophytes. JOINTS: There is osteoarthritis of the midfoot. There is osteoarthritis of the fibulotalar and tibiotalar articulations. ALIGNMENT: There is no dislocation. SOFT TISSUES: Unremarkable. OTHER FINDINGS: None. IMPRESSION: OSTEOARTHRITIS. NO ACUTE OSSEOUS INJURY. IF SYMPTOMS PERSIST, RECOMMEND REPEAT IMAGING. <Electronically signed by Hakan Lopez MD in OV> 10/22/191538 Dictated By: Hakan Lopez MD Dictated Date/Time: 10/22/191537 Transcribed Date/Time: 10/22/191537 Copy to: CC:Major Jon DO; Luke Parr MD Imaging - [facility] [place] [address] [address] ph ) ph ([phone]) ph ([phone]) End of Report Content ==== Braille Translator: Hakan Lopez Daniel, ([id number]) Fish Hatchery Manager: SARA, ( NUANCE) Report Date: 10/22/2019 15:43:00 Report Status: Final ====== Start of Report Content Patient Name: OSCAR MONAHAN Ordering Physician: Luke Parr MD Acct.#: [id number] : 1970 Age: 49 Sex: M [place] [facility] [place]am Date: 10/22/19 1506 ADM Status: REG ER Order Information: ANKLE LEFT 3+VWS Accession Number: [id number] CPT: 20540 HISTORY: pain s/p fall . COMPARISONS: August 16, 2013 VIEWS: 6, Frontal, lateral, and oblique views of the left foot and ankle. FINDINGS: BONE DENSITY: Normal. BONES: There is no displaced fracture. There are posterior and plantar calcaneal enthesophytes. JOINTS: There is osteoarthritis of the midfoot. There is osteoarthritis of the fibulotalar and tibiotalar articulations. ALIGNMENT: There is no dislocation. SOFT TISSUES: Unremarkable. OTHER FINDINGS: None. IMPRESSION: OSTEOARTHRITIS. NO ACUTE OSSEOUS INJURY. IF SYMPTOMS PERSIST, RECOMMEND REPEAT IMAGING. <Electronically signed by Hakan Lopez MD in OV> 10/22/191538 Dictated By: Hakan Lopez MD Dictated Date/Time: 10/22/191537 Transcribed Date/Time: 10/22/191537 Copy to: CC:Major Jon DO; Luke Parr MD Imaging - [facility] [address] [place] [address] ph ) ph ([phone]) ph ([phone]) End of Report Content ==== I discussed the x-rays with the patient. No fracture seen. Patient placed in an Usman wrap and gel splint by nursing. Patient reports he has a cane and walker at home which she will use to assist with ambulation. We discussed using ibuprofen and ice and rest and also with range of motion. If not completely improved follow-up with orthopedics. - Differential Dx/Diagnosis Provider Diagnosis: Left ankle sprain, Sprain of left foot Discharge ED - Sign-Out/Discharge Documenting (check all that apply): Patient Departure All imaging exams completed and their final reports reviewed: Yes - Discharge Plan Condition: Stable Disposition: HOME Patient Education Materials: Ankle Sprain (ED), Foot Sprain (ED) Referrals: Major Jon DO [Primary Care Provider] - Miguel Davalos MD [Medical Doctor] - Additional Instructions: FOLLOW UP WITH DR DAVALOS, ORTHOPEDICS, IF NOT COMPLETELY IMPROVED. GET REEVALUATED SOONER IF NOT IMPROVING OR WORSE OR ANY QUESTIONS OR CONCERNS. - Billing Disposition and Condition Condition: STABLE Disposition: Home
== END 2019-10-22 16:34 | disposition home or self-care (01) ==
LOC: UCCORT 14:44
DX: S93.402A Sprain of unspecified ligament of left ankle, initial encounter (principal); S93.602A Unspecified sprain of left foot, initial encounter; S90.812A Abrasion, left foot, initial encounter; M19.072 Primary osteoarthritis, left ankle and foot; E11.9 Type 2 diabetes mellitus without complications; I10 Essential (primary) hypertension; M10.9 Gout, unspecified; W00.0XXA Fall on same level due to ice and snow, initial encounter; Y92.481 Parking lot as the place of occurrence of the external cause
CPT/HCPCS: 99213; A9270-GY; G0463

== ENCOUNTER 2022-02-22 20:10 | Inpatient (IN) ==
[2022-02-22 22:59] LABS: ABS Basophils 0.1 10^3/ul (0-0.2); ABS Eosinophils 0.2 10^3/ul (0-0.6); ABS Lymphocytes 1.2 10^3/ul (1.0-4.8); ABS Monocytes 0.5 10^3/ul (0-0.8); ABS Neutrophils 5.4 10^3/ul (1.5-7.7); Eosinophil % 3.3 %; Hematocrit 34 % (42-52); Hemoglobin 11.3 g/dL (14.0-18.0); Lymphocyte % 16.4 %; Mean Corpuscular HGB Conc 34 g/dL (31-36); Mean Corpuscular Hemoglobin 29 pg (27-31); Mean Corpuscular Volume 88 fL (80-94); Platelet Count 410 10^3/uL (150-450); Red Blood Count 3.86 10^6 /uL (4.18-5.48); Red Cell Distribution Width 14 % (10-15); White Blood Count 7.3 10^3/uL (3.5-10.8)
[2022-02-23 00:03] LABS: Albumin 4.1 g/dL (3.2-5.2); Albumin/Globulin Ratio 1.5 (1-3); C Reactive Protein 25.99 mg/L (<8.01); Calcium 9.3 mg/dL (8.6-10.3); Globulin 2.7 g/dL (2-4); Potassium 4.5 mmol/L (3.5-5.0); Total Bilirubin 0.3 mg/dL (0.2-1.0); Total Protein 6.8 g/dL (6.4-8.9); eGFR CKD-EPI 49.3 (>60)
[2022-02-23] MEDS ORDERED: Vancomycin 1,500 MG in NS 0.9% 250 ml 250 ML IVPB ONE (01:35)
[2022-02-23] MEDS ORDERED: Vancomycin per Pharmacy 1 EA NOTE FOLLOW UP SCH (02:00)
[2022-02-23] MEDS: Enoxaparin 40 MG/0.4 ML SYR SUBCUT SCH (02:00)
[2022-02-23] MEDS: Cefepime 2 GM in Dextrose 2 GM/50 ML BAG IV SCH ×2 (02:00→14:37)
[2022-02-23] MEDS ORDERED: Vancomycin 2,000 MG in NS 0.9% 500 ml BAG 500 ML IVPB ONE (02:30)
[2022-02-23] MEDS ORDERED: NS 0.9% 1000 ml BAG 1,000 ML IV SCH (02:30)
[2022-02-23 05:51] LABS: ABS Eosinophils 0.1 10^3/ul (0-0.6); ABS Lymphocytes 0.5 10^3/ul (1.0-4.8); ABS Monocytes 0.3 10^3/ul (0-0.8); ABS Neutrophils 9.5 10^3/ul (1.5-7.7); Eosinophil % 0.8 %; Hematocrit 32 % (42-52); Hemoglobin 11.1 g/dL (14.0-18.0); Mean Corpuscular HGB Conc 34 g/dL (31-36); Mean Corpuscular Hemoglobin 30 pg (27-31); Mean Corpuscular Volume 87 fL (80-94); Mean Platelet Volume 6.9 fL (7.4-10.4); Platelet Count 365 10^3/uL (150-450); Red Cell Distribution Width 14 % (10-15); White Blood Count 10.4 10^3/uL (3.5-10.8)
[2022-02-23 06:40] LABS: Calcium 8.8 mg/dL (8.6-10.3); Potassium 4.1 mmol/L (3.5-5.0); eGFR CKD-EPI 53.1 (>60)
[2022-02-23] MEDS: Vancomycin 1000 MG in NS 0.9% 250 ML IVPB SCH (17:50)
[2022-02-23] MEDS: Carbidopa/Levodop 25/100 MG TAB PO SCH (17:51)
[2022-02-23] MEDS ORDERED: Lisinopril/HCTZ 20/12.5 TB(NF) PO SCH (21:00)
[2022-02-23] MEDS ORDERED: TRAZODONE HCL 300 MG PO SCH (21:00)
[2022-02-24] MEDS: Cefepime 2 GM in Dextrose 2 GM/50 ML BAG IV SCH ×3 (03:15→14:06)
[2022-02-24] MEDS: Enoxaparin 40 MG/0.4 ML SYR SUBCUT SCH (03:16)
[2022-02-24] MEDS: Vancomycin 1000 MG in NS 0.9% 250 ML IVPB SCH ×2 (04:26→16:22)
[2022-02-24 06:31] LABS: C Reactive Protein 41.41 mg/L (<8.01); eGFR CKD-EPI 52.3 (>60)
[2022-02-24] MEDS: Carbidopa/Levodop 25/100 MG TAB PO SCH ×3 (08:26→17:50)
[2022-02-25] MEDS: Enoxaparin 40 MG/0.4 ML SYR SUBCUT SCH (01:44)
[2022-02-25] MEDS: Cefepime 2 GM in Dextrose 2 GM/50 ML BAG IV SCH ×2 (01:46→14:10)
[2022-02-25] MEDS: Vancomycin 1000 MG in NS 0.9% 250 ML IVPB SCH ×2 (03:27→16:35)
[2022-02-25 05:44] LABS: ABS Eosinophils 0.3 10^3/ul (0-0.6); ABS Lymphocytes 1.1 10^3/ul (1.0-4.8); ABS Monocytes 0.4 10^3/ul (0-0.8); ABS Neutrophils 2.6 10^3/ul (1.5-7.7); Eosinophil % 7.2 %; Hematocrit 27 % (42-52); Hemoglobin 9.3 g/dL (14.0-18.0); Lymphocyte % 24.2 %; Mean Corpuscular HGB Conc 35 g/dL (31-36); Mean Corpuscular Hemoglobin 30 pg (27-31); Mean Corpuscular Volume 87 fL (80-94); Nucleated Red Blood Cells % 0.1; Platelet Count 285 10^3/uL (150-450); Red Blood Count 3.11 10^6 /uL (4.18-5.48); Red Cell Distribution Width 14 % (10-15); White Blood Count 4.4 10^3/uL (3.5-10.8)
[2022-02-25 06:26] LABS: C Reactive Protein 20.65 mg/L (<8.01); Calcium 8.4 mg/dL (8.6-10.3); Potassium 4.3 mmol/L (3.5-5.0); eGFR CKD-EPI 63.2 (>60)
[2022-02-25] MEDS: Carbidopa/Levodop 25/100 MG TAB PO SCH ×3 (07:53→18:20)
[2022-02-25] MEDS ORDERED: Calcium Carb (TUMS) 500 mg CHEW TAB PO PRN (12:43)
[2022-02-25] MEDS ORDERED: Vancomycin Trough Check NOTE FOLLOW UP ONE (15:30)
[2022-02-26] MEDS: Cefepime 2 GM in Dextrose 2 GM/50 ML BAG IV SCH ×2 (01:47→14:41)
[2022-02-26] MEDS: Enoxaparin 40 MG/0.4 ML SYR SUBCUT SCH (01:47)
[2022-02-26] MEDS: Vancomycin 1000 MG in NS 0.9% 250 ML IVPB SCH ×2 (03:30→15:49)
[2022-02-26 05:55] LABS: ABS Basophils 0.1 10^3/ul (0-0.2); ABS Eosinophils 0.3 10^3/ul (0-0.6); ABS Lymphocytes 1.3 10^3/ul (1.0-4.8); ABS Monocytes 0.3 10^3/ul (0-0.8); ABS Neutrophils 2.9 10^3/ul (1.5-7.7); Hematocrit 30 % (42-52); Hemoglobin 10.2 g/dL (14.0-18.0); Lymphocyte % 26.7 %; Mean Corpuscular HGB Conc 34 g/dL (31-36); Mean Corpuscular Hemoglobin 30 pg (27-31); Mean Corpuscular Volume 87 fL (80-94); Platelet Count 310 10^3/uL (150-450); Red Blood Count 3.45 10^6 /uL (4.18-5.48); Red Cell Distribution Width 14 % (10-15); White Blood Count 4.9 10^3/uL (3.5-10.8)
[2022-02-26 06:20] LABS: Calcium 9.2 mg/dL (8.6-10.3); Potassium 5.1 mmol/L (3.5-5.0)
[2022-02-26] MEDS: Carbidopa/Levodop 25/100 MG TAB PO SCH ×3 (08:45→17:50)
[2022-02-27] MEDS: Cefepime 2 GM in Dextrose 2 GM/50 ML BAG IV SCH ×2 (01:59→14:26)
[2022-02-27] MEDS: Enoxaparin 40 MG/0.4 ML SYR SUBCUT SCH (02:00)
[2022-02-27] MEDS: Vancomycin 1000 MG in NS 0.9% 250 ML IVPB SCH (03:55)
[2022-02-27 06:07] LABS: ABS Basophils 0.1 10^3/ul (0-0.2); ABS Eosinophils 0.3 10^3/ul (0-0.6); ABS Lymphocytes 1.2 10^3/ul (1.0-4.8); ABS Monocytes 0.4 10^3/ul (0-0.8); ABS Neutrophils 3.2 10^3/ul (1.5-7.7); Eosinophil % 5.5 %; Hematocrit 27 % (42-52); Hemoglobin 9.4 g/dL (14.0-18.0); Lymphocyte % 22.8 %; Mean Corpuscular HGB Conc 35 g/dL (31-36); Mean Corpuscular Hemoglobin 30 pg (27-31); Mean Corpuscular Volume 86 fL (80-94); Mean Platelet Volume 7.1 fL (7.4-10.4); Platelet Count 294 10^3/uL (150-450); Red Blood Count 3.14 10^6 /uL (4.18-5.48); Red Cell Distribution Width 14 % (10-15); White Blood Count 5.1 10^3/uL (3.5-10.8)
[2022-02-27 06:39] LABS: Calcium 8.8 mg/dL (8.6-10.3); Potassium 4.5 mmol/L (3.5-5.0); eGFR CKD-EPI 78.2 (>60)
[2022-02-27 08:08] LABS: C Reactive Protein 11.27 mg/L (<8.01)
[2022-02-27] MEDS: Carbidopa/Levodop 25/100 MG TAB PO SCH ×2 (08:49→13:02)
[2022-02-27 12:43] VITALS: BP 146/93
== END 2022-02-27 16:10 | disposition home or self-care (01) | DRG 344 ==
LOC: ED 20:10 → SUATTDRO 02-23 01:06 → EDHOLD 02-23 01:06 → SSU 02-23 08:19
PROVIDERS: ADMIT Hospitalist; ATTEND Internal Medicine

== ENCOUNTER 2024-03-24 06:02 | Observation (INO) ==
[2024-03-24] MEDS: Buffered Lidocaine 1% SYRIN 1 ml INTRADERM ONE (05:41)
[2024-03-24] MEDS: Acetaminophen IV 1 GM/100ML 1,000 MG/100 ML BAG IV ONE (05:41)
[~2024-03-24 06:02] MED LIST: Metoclopramide 5 MG/ML VIAL (10 mg) IV PRN; NS 0.45% 1000 ml BAG 1,000 ML IV SCH; Naloxone 0.4 mg VIAL 0.4 mg/ml 1 ml VIAL IV PRN; Ondansetron 4 mg VIAL 2 MG/ML 2 ml VIAL IV PRN
[2024-03-24] MEDS: Lactated Ringers 1000 ml BAG 1,000 ML IV SCH (06:26)
[2024-03-24] MEDS: Scopolamine 1 mg/72hr PATCH TRANSDERM ONE (06:26)
[2024-03-24 06:41] LABS: Rapid COVID-19 Molecular Undetected (Undetected)
[2024-03-24] MEDS ORDERED: Propofol 10 MG/ML 20 ML BTL ONE (07:05)
[2024-03-24] MEDS ORDERED: Lidocaine 2% PF 5 ML VIAL ONE (07:05)
[2024-03-24] MEDS ORDERED: Succinylcholine 200 mg VIAL 20 mg/ml 10 ml VIAL (200 mg) ONE (07:05)
[2024-03-24] MEDS ORDERED: fentaNYL 100 mcg/2 ml 50 MCG/ML VIAL ONE ×2 (07:05→08:53)
[2024-03-24] MEDS ORDERED: Midazolam 2 mg/2 ml VIAL 1 mg/ml 2 ml VIAL (2 mg) ONE (07:06)
[2024-03-24] MEDS ORDERED: Rocuronium 50 mg VIAL 10 mg/ml 5 ml VIAL (50 mg) ONE (07:06)
[2024-03-24] MEDS ORDERED: Ondansetron 4 mg VIAL 2 MG/ML 2 ml VIAL IV PRN (07:30)
[2024-03-24] MEDS ORDERED: Ondansetron 4 mg VIAL 2 MG/ML 2 ml VIAL ONE (08:00)
[2024-03-24] MEDS ORDERED: Furosemide 20 mg/2 ml IV VIAL ONE (08:11)
[2024-03-24] MEDS: fentaNYL 100 mcg/2 ml 50 MCG/ML VIAL IV PRN (08:54)
[2024-03-24] MEDS: NS 0.9% 1000 ml BAG 1,000 ML IV SCH (11:04)
[2024-03-24] MEDS: Magnesium Hydroxide LIQ 30 ML UDC PO SCH (11:22)
[2024-03-24] MEDS: Neomycin/Polym/Bacit TOP OINT 15 GM TOPICAL SCH (11:22)
[2024-03-24] MEDS: NS 0.9% IVPB SCH (11:32)
[2024-03-24] MEDS: Ampicillin ADVAN 2 GM in NS 0.9% 100 ML 100 ML IVPB ONE (11:32)
[2024-03-24] MEDS: GENTAMICIN ADULT IVPB SCH (11:32)
[2024-03-24] MEDS ORDERED: Dextrose 50% Syringe 50 ml 25 GM/50 ML SYRINGE IV PUSH PRN (13:23)
[2024-03-24] MEDS: tadalafiL 5 MG TABLET (NF) PO SCH (20:44)
[2024-03-25 05:26] VITALS: BP 117/72
[2024-03-25 06:07] LABS: Creatinine, Serum 1.25 mg/dL (0.67-1.17); Potassium 4.6 mmol/L (3.5-5.0); eGFR CKD-EPI 68.4 (>60)
[2024-03-25 06:13] LABS: ABS Eosinophils 0.3 10^3/uL (0.0-0.5); ABS Monocytes 0.3 10^3/uL (0.0-1.1); Eosinophil % 5.6 %; Hematocrit 29.9 % (38-53); Hemoglobin 10.3 g/dL (13.2-16.3); Lymphocyte % 21.4 %; Mean Corpuscular Hemoglobin 29.9 pg (27-33); Mean Corpuscular Hgb Conc 34.4 g/dL (31-36); Mean Corpuscular Volume 86.8 fL (80-97); Mean Platelet Volume 8.1 fL (7.5-11.2); Nucleated Red Blood Cells % 0.1 %/100WBC (0.0-0.8); Platelet Count 170 10^3/uL (150-450); Red Blood Count 3.45 10^6/uL (4.06-5.63); Red Cell Distribution Width 15.6 % (12-17); White Blood Count 4.6 10^3/uL (3.6-10.2)
== END 2024-03-25 09:30 | disposition home or self-care (01) ==
LOC: SSU 06:02 → OR 06:02
PROVIDERS: ADMIT Urology; ATTEND Urology